=== PATIENT | female | born 1980 | race Caucasian/White ===

== ENCOUNTER 2017-12-06 18:43 | Emergency (ER) | payer OTHER ==
[2017-12-06 19:16] LABS: Urine Blood TRACE (NEG); Urine Glucose NEGATIVE (NEG); Urine Protein TRACE (NEG); Urine pH 7.5 (5.0-7.0)
[2017-12-06 19:24] LABS: Urine Bacteria <20 /HPF (<20); Urine Culture Reflex Order NOT NEEDED; Urine Mucus NS /HPF (NONE SEEN)
[2017-12-06] MEDS ORDERED: NA CHLORIDE 0.9% 1,000 ML ONE (20:08)
[2017-12-06] MEDS ORDERED: KETOROLAC 30 MG/ML INJ ONE (20:08)
[2017-12-06 20:32] LABS: Absolute Lymphocytes (CBC) 1.5 K/uL (0.7-4.9); Absolute Neutrophil 2.9 K/uL (1.8-8.0); Eosinophils % 0.4 % (0-4.4); Hematocrit 37.8 % (36.0-45.0); Lymphocytes % 26.5 % (15.3-44.8); MCH 24.6 pg (27.0-35.0); MCV 75.1 fL (80-100); MPV 9.1 fL (7.6-11.3); Monocytes % 18.6 % (3.3-12.3); RBC Red Blood Cell Count 5.04 M/uL (3.86-4.86)
[2017-12-06 20:35] LABS: Bicarbonate 24 mEq/L (21-31); Glucose Level 94 mg/dL (65-120); Potassium 4.1 mEq/L (3.6-5.0); Sodium Level 138 mEq/L (135-145)
[2017-12-06 20:36] LABS: BUN Blood Urea Nitrogen 13 mg/dL (6-20)
--- NOTE | 2017-12-06 20:51 | RAD REPORT ---
EXAM DESCRIPTION: CT - Stone Protocol - 12/06/2017 8:36 pm CLINICAL HISTORY: Flank pain. Hematuria COMPARISON: 08/17/2017 TECHNIQUE: Axial images were obtained without oral or IV contrast. Lack of contrast limits solid org an and vascular assessment. The [id number] spans the entirety of the system partially obscuring uppermost abdomen and lung bases. Coronal reformatted images were obtained and reviewed. All CT scans are performed using dose optimization technique as appropriate and may include automated exposure control or mA/KV adjustment according to patient size. FINDINGS: The lower lung de jesus are clear. Imaged portions of the liver and spleen show no suspicious findings on non-contrast imaging. The panc reas and adrenal glands are normal. No pathologic lymphadenopathy in the abdomen or pelvis. No urinary tract stones or obstructive uropathy. No bowel obstruction, free air, free fluid or abscess. Normal appendix noted. No significant bony abnormality. IMPRESSION: No urinary tract stones or obstructive uropathy.
[2017-12-06 20:54] LABS: Anisocytosis 2+; Blood Morphology Comment NOTED (NOT SEEN); Platelet Estimate ADEQ
--- NOTE | 2017-12-06 21:18 | ER ---
Nurse's Notes [facility] Name: Carli Hadley Age: 36 yrs Sex: Female : 1980 Arrival Date: 12/06/2017 Time: 18:45 Bed 24 Private MD: Lambert Stark Diagnosis: Hematuria, unspecified Presentation: 12/06 18:47 Presenting complaint: Patient states: Burning with urination and blood in urine since la1 yesterday. Transition of care: patient was not received from another setting of care. Onset of symptoms was December 06, 2017. Initial Sepsis Screen: Does the patient meet any 2 criteria? No. Patient's initial sepsis screen is negative. Does the patient have a suspected source of infection? No. Patient's initial sepsis screen is negative. Care prior to arrival: None. 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 - Social history:: Smoking status: Patient uses tobacco products, smokes one pack cigarettes per day. Screenin:15 Fall Risk None identified. kr2 20:51 Abuse screen: Denies threats or abuse. Denies injuries from another. Nutritional kr2 screening: No deficits noted. Tuberculosis screening: No symptoms or risk factors identified. Assessment: 19:30 General: Appears in no apparent distress. uncomfortable, well groomed, well developed, kr2 well nourished, Behavior is calm, cooperative, appropriate for age. Pain: Complains of pain in back, pelvis, legs Pain currently is 7 out of 10 on a pain scale. Quality of pain is described as aching, sharp, Is continuous, Alleviated by rest. Neuro: Level of Consciousness is awake, alert, obeys commands, Oriented to person, place, time, situation. Cardiovascular: Capillary refill < 3 seconds in bilateral fingers Patient's skin is warm and dry. Respiratory: Airway is patent Respiratory effort is even, unlabored, Respiratory pattern is regular, symmetrical. GI: Abdomen is flat, non-distended, Bowel sounds present X 4 quads. : Reports burning with urination. EENT: Oral mucosa is moist. Derm: Skin is intact, is healthy with good turgor, Skin is pink, warm \T\ dry. Musculoskeletal: Circulation, motion, and sensation intact. 20:30 Reassessment: Patient appears in no apparent distress at this time. Patient and/or kr2 family updated on plan of care and expected duration. Pain level reassessed. Patient is alert, oriented x 3, equal unlabored respirations, skin warm/dry/pink. Medicated for pain as ordered, pain has decreased. 21:30 Reassessment: Patient appears in no apparent distress at this time. Patient and/or kr2 family updated on plan of care and expected duration. Pain level reassessed. Patient is alert, oriented x 3, equal unlabored respirations, skin warm/dry/pink. Reports pain is returning, provider notified, see MAR. Vital Signs: 18:48 BP 148 / 110; Pulse 103; Resp 19; Temp 99.7(TE); Pulse Ox 100% on R/A; Weight 61.23 kg; la1 Height 5 ft. 2 in. (157.48 cm); 20:45 BP 137 / 92; Pulse 102; Resp 18; Pulse Ox 99% on R/A; kr2 21:30 BP 133 / 88; Pulse 94; Resp 16; Pulse Ox 100% on R/A; kr2 18:48 Body Mass Index 24.69 (61.23 kg, 157.48 cm) la1 ED Course: 18:45 Patient arrived in ED. as 18:45 Lambret Stark MD is Private Physician. as 18:48 Triage completed. la1 18:49 Arm band placed on left wrist. la1 18:52 [facility]C [facility]. kb 18:52 Alexei Pickering MD is Attending Physician. kb 19:15 Patient has correct armband on for positive identification. Bed in low position. Call kr2 light in reach. Side rails up X 1. Pulse ox on. NIBP on. Door closed. Lights dimmed. Warm blanket given. Head of bed elevated. 19:17 Isabel Martinez RN is Primary Nurse. kr2 20:15 Inserted saline lock: 20 gauge in right antecubital area, using aseptic technique. kr2 Blood collected. 20:28 CT completed. Patient moved to CT via wheelchair. Patient moved back from CT. cw1 20:36 CT Stone Protocol In Process Unspecified. EDMS 22:02 No provider procedures requiring assistance completed. IV discontinued, intact, kr2 bleeding controlled, No redness/swelling at site. Pressure dressing applied. Administered Medications: 20:03 CANCELLED (Physician Discretion): TORadol 60 mg IM once kb 20:19 Drug: NS 0.9% 1000 ml Route: IV; Rate: 1000 ml; Site: right antecubital; kr2 21:30 Follow up: Response: No adverse reaction; IV Status: Completed infusion kr2 20:19 Drug: TORadol 30 mg Route: IVP; Site: right antecubital; kr2 20:30 Follow up: Response: No adverse reaction; Pain is decreased kr2 21:42 Drug: [place] (7.5 mg-325 mg) 1 tabs Route: PO; kr2 21:59 Follow up: Response: Medication administered at discharge. kr2 Outcome: 21:18 Discharge ordered by . kb 22:02 Discharged to home ambulatory, with friend. kr2 22:02 Condition: good 22:02 Discharge instructions given to patient, Instructed on discharge instructions, follow up and referral plans. Demonstrated understanding of instructions, follow-up care. 22:03 Patient left the ED. kr2 Signatures: Dispatcher [employer] EDWI Magali Elmore, GENNARO HILL-Kassi Glaser Crystal cw1 Bridger Jama RN RN laIsabel Conrad RN RN kr2
--- NOTE | 2017-12-06 21:18 | EDPHYS ---
Physician Documentation [facility] Name: Carli Hadley Age: 36 yrs Sex: Female : 1980 Arrival Date: 12/06/2017 Time: 18:45 Bed 24 Private MD: Lambert Stark ED Physician Alexei Pickering HPI: 12/06 21:54 This 36 yrs old Female presents to ER via Ambulatory with complaints of kb Urinary Problem. 21:54 The patient presents with urinary symptoms, dysuria, hematuria. Onset: The kb symptoms/episode began/occurred yesterday. Modifying factors: The symptoms are alleviated by nothing, the symptoms are aggravated by urinating. Associated signs and symptoms: Pertinent positives: dysuria, hematuria. Severity of symptoms: At their worst the symptoms were moderate, in the emergency department the symptoms are unchanged. The patient has not experienced similar symptoms in the past. The patient has not recently seen a physician. Pt states she has had multiple UTIs and thinks she another one. . 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 - Social history:: Smoking status: Patient uses tobacco products, smokes one pack cigarettes per day. ROS: 21:53 Constitutional: Negative for fever, chills, and weight loss, Cardiovascular: Negative kb for chest pain, palpitations, and edema, Respiratory: Negative for shortness of breath, cough, wheezing, and pleuritic chest pain, Abdomen/GI: Negative for abdominal pain, nausea, vomiting, diarrhea, and constipation, MS/Extremity: Negative for injury and deformity, Skin: Negative for injury, rash, and discoloration, Neuro: Negative for headache, weakness, numbness, tingling, and seizure. 21:53 : Positive for urinary symptoms, hematuria, burning with urination. Exam: 21:53 Constitutional: This is a well developed, well nourished patient who is awake, alert, kb and in no acute distress. Head/Face: Normocephalic, atraumatic. Chest/axilla: Normal chest wall appearance and motion. Nontender with no deformity. No lesions are appreciated. Cardiovascular: Regular rate and rhythm with a normal S1 and S2. No gallops, murmurs, or rubs. Normal PMI, no JVD. No pulse deficits. Respiratory: Lungs have equal breath sounds bilaterally, clear to auscultation and percussion. No rales, rhonchi or wheezes noted. No increased work of breathing, no retractions or nasal flaring. Abdomen/GI: Soft, non-tender, with normal bowel sounds. No distension or tympany. No guarding or rebound. No evidence of tenderness throughout. Back: No spinal tenderness. No costovertebral tenderness. Full range of motion. Skin: Warm, dry with normal turgor. Normal color with no rashes, no lesions, and no evidence of cellulitis. MS/ Extremity: Pulses equal, no cyanosis. Neurovascular intact. Full, normal range of motion. Neuro: Awake and alert, GCS 15, oriented to person, place, time, and situation. Cranial nerves II-XII grossly intact. Motor strength 5/5 in all extremities. Sensory grossly intact. Cerebellar exam normal. Normal gait. Vital Signs: 18:48 BP 148 / 110; Pulse 103; Resp 19; Temp 99.7(TE); Pulse Ox 100% on R/A; Weight 61.23 kg; la1 Height 5 ft. 2 in. (157.48 cm); 20:45 BP 137 / 92; Pulse 102; Resp 18; Pulse Ox 99% on R/A; kr2 21:30 BP 133 / 88; Pulse 94; Resp 16; Pulse Ox 100% on R/A; kr2 18:48 Body Mass Index 24.69 (61.23 kg, 157.48 cm) la1 MDM: 19:13 Patient medically screened. frederic 21:53 Data reviewed: vital signs, nurses notes. Data interpreted: Pulse oximetry: on room air kb is 99 %. Interpretation: normal. Counseling: I had a detailed discussion with the patient and/or guardian regarding: the historical points, exam findings, and any diagnostic results supporting the discharge/admit diagnosis, lab results, radiology results, the need for outpatient follow up, a family practitioner, a urologist, to return to the emergency department if symptoms worsen or persist or if there are any questions or concerns that arise at home. 12/06 18:52 Order name: Urine Microscopic Only; Complete Time: 19:25 kb 12/06 19:08 Order name: Urine Dipstick--Ancillary (enter results); Complete Time: 19:20 em1 12/06 19:08 Order name: Urine --Ancillary (enter results); Complete Time: 19:20 em1 12/06 20:04 Order name: CBC with Diff; Complete Time: 20:55 kb 12/06 20:04 Order name: Basic Metabolic Panel; Complete Time: 20:40 kb 12/06 20:54 Order name: Manual Differential; Complete Time: 20:55 EDMS 12/06 18:52 Order name: Urine Test (obtain specimen); Complete Time: 19:07 kb 12/06 18:52 Order name: Urine Dipstick-Ancillary (obtain specimen); Complete Time: 19:07 kb 12/06 20:03 Order name: CT Stone Protocol; Complete Time: 20:54 kb Administered Medications: 20:03 CANCELLED (Physician Discretion): TORadol 60 mg IM once kb 20:19 Drug: NS 0.9% 1000 ml Route: IV; Rate: 1000 ml; Site: right antecubital; kr2 21:30 Follow up: Response: No adverse reaction; IV Status: Completed infusion kr2 20:19 Drug: TORadol 30 mg Route: IVP; Site: right antecubital; kr2 20:30 Follow up: Response: No adverse reaction; Pain is decreased kr2 21:42 Drug: [place] (7.5 mg-325 mg) 1 tabs Route: PO; kr2 21:59 Follow up: Response: Medication administered at discharge. kr2 Disposition: 12/07 08:56 Co-signature as Attending Physician, Aelxei Pickering MD I agree with the assessment and frederic plan of care. Disposition: 12/06/17 21:18 Discharged to Home. Impression: Hematuria, unspecified. - Condition is Stable. - Discharge Instructions: Hematuria, Adult. - Medication Reconciliation Form, Thank You Letter, Antibiotic Education, Prescription Opioid Use form. - Follow up: Emergency Department; When: As needed; Reason: Worsening of condition. Follow up: Private Physician; When: 2 - 3 days; Reason: Recheck today's complaints, Continuance of care, Re-evaluation by your physician. Signatures: Dispatcher [employer] Magali Calvo, SAMEERAC CERTIFIED LOW VISION THERAPIST-Alexei Conway MD MD cha Attema, Lee, RN RN [email or web address] Isabel Martinez RN RN kr2 Corrections: (The following items were deleted from the chart) 12/06 20:03 20:03 TORadol 60 mg IM once ordered. kb kb 21:53 21:53 : Positive for urinary symptoms, urinary frequency, hematuria, burning with kb urination, kb
[2017-12-06] MEDS ORDERED: HYDROCODONE/APAP 7.5/325 MG TAB ONE (21:38)
== END 2017-12-06 22:03 | disposition home or self-care (01) ==
LOC: ER 18:43
DX: R31.9 Hematuria, unspecified (principal); I10 Essential (primary) hypertension; F17.210 Nicotine dependence, cigarettes, uncomplicated; Z88.1 Allergy status to other antibiotic agents; Z88.8 Allergy status to other drugs, medicaments and biological substances
CPT/HCPCS: 36415; 74176; 76377; 80048; 81025; 85025; J7030; 81003; 81015; 96361; 96374; 99284

== ENCOUNTER 2017-12-07 03:42 | Emergency (ER) | payer OTHER ==
[2017-12-07 04:15] LABS: Urine Blood 2+ (NEG); Urine Glucose NEGATIVE (NEG); Urine Protein 2+ (NEG); Urine Specific Gravity >1.030 (1.005-1.030); Urine pH 6.5 (5.0-7.0)
--- NOTE | 2017-12-07 04:21 | ER ---
Nurse's Notes [facility] Name: Carli Hadley Age: 36 yrs Sex: Female : 1980 Arrival Date: 12/07/2017 Time: 03:43 Bed 20 Private MD: Lambert Stark Diagnosis: Sleep related leg cramps Presentation: 12/07 03:54 Presenting complaint: Patient states: "I'm having blood in my urine. My leg hurts, my ao back hurts. I have a history of UTI's in the past with similar symptoms.". Transition of care: patient was not received from another setting of care. Onset of symptoms is unknown. Initial Sepsis Screen: Does the patient meet any 2 criteria? No. Patient's initial sepsis screen is negative. Does the patient have a suspected source of infection? Yes: Dysuria/Frequency/Urgency/UTI. Care prior to arrival: None. 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 - Social history:: Smoking status: Patient uses tobacco products, denies chronic smoking, but will smoke occasionally, smokes one-half pack cigarettes per day, Patient/guardian denies using alcohol, street drugs. Screenin:02 Abuse screen: Denies threats or abuse. Denies injuries from another. Nutritional ao screening: No deficits noted. Tuberculosis screening: No symptoms or risk factors identified. Fall Risk None identified. Assessment: 04:01 General: Appears in no apparent distress. uncomfortable, Behavior is calm, cooperative, ao appropriate for age. Pain: Complains of pain in back, right leg and left leg Pain does not radiate. Pain currently is 8 out of 10 on a pain scale. Neuro: Level of Consciousness is awake, alert, obeys commands, Oriented to person, place, time, situation, Appropriate for age Moves all extremities. Speech is normal. Cardiovascular: Capillary refill < 3 seconds Patient's skin is warm and dry. Respiratory: Airway is patent Respiratory effort is even, unlabored, Respiratory pattern is regular, symmetrical. GI: Abdomen is non-distended. : Reports pain in lower back Pain is 8 out of 10 on a pain scale. : Reports urinary frequency. EENT: Derm: No signs and/or symptoms reported regarding the dermatologic system. Musculoskeletal: No signs and/or symptoms reported regarding the musculoskeletal system. 04:17 Reassessment: Patient has been sleeping with no ss of pain. Dr De Anda at bedside trying ao to wake patient up and patient was in a deep sleep. Dr De Anda expressed to me that patient is not so much in pain. 04:33 Reassessment: DC instructions given to patient. Patient requested a pain shot and was ao told that DrRosemarie feel that she is not so much in pain so he would not be able to give her a pain shot. Patient got mad and told me "I'm not taking no Ibuprofen. You can keep that" Patient got up and left the room without taking her DC documents. was notified. Vital Signs: 03:59 BP 120 / 72; Pulse 115; Resp 16; Temp 98.7(O); Pulse Ox 97% on R/A; Weight 61.23 kg ao (R); Height 5 ft. 2 in. (157.48 cm) (R); Pain 8/10; 03:59 Body Mass Index 24.69 (61.23 kg, 157.48 cm) ao ED Course: 03:43 Patient arrived in ED. es 03:46 Lambert Stark MD is Private Physician. es 03:54 Armando Sterling, KATHARINE is Primary Nurse. ao 03:57 Triage completed. ao 03:57 Arm band placed on right wrist. Patient placed in an exam room, on a stretcher, on ao pulse oximetry, Patient notified of wait time. 04:02 Patient has correct armband on for positive identification. Pulse ox on. NIBP on. ao 04:07 Fausto De Anda MD is Attending Physician. tw4 04:20 Lambert Stark MD is Referral Physician. tw4 04:31 No provider procedures requiring assistance completed. Patient did not have IV access ao during this emergency room visit. Administered Medications: No medications were administered Outcome: 04:20 Discharge ordered by . tw4 04:32 Discharged to home ambulatory. ao 04:32 Condition: stable 04:32 Discharge instructions given to patient, Instructed on discharge instructions, follow up and referral plans. Demonstrated understanding of instructions, follow-up care, medications, Prescriptions given X 1, Patient left without DC papers 04:36 Patient left the ED. ao Signatures: Veronica Rossi Alex RN RN Fausto Pedroza MD MD tw4 Corrections: (The following items were deleted from the chart) 04:36 04:17 Reassessment: Patient has been sleeping with no ss of pain. Dr De Anda at bedside ao trying to wake patient up and patient was in a deep sleep. ao
--- NOTE | 2017-12-07 04:21 | EDPHYS ---
Physician Documentation [facility] Name: Carli Hadley Age: 36 yrs Sex: Female : 1980 Arrival Date: 12/07/2017 Time: 03:43 Bed 20 Private MD: Lambert Stark ED Physician Fausto De Anda HPI: 12/07 04:32 This 36 yrs old Female presents to ER via Ambulatory with complaints of tw4 States she is in sever pain. 04:32 The patient presents with urinary symptoms, dysuria, hematuria. Onset: The tw4 symptoms/episode began/occurred just prior to arrival. Modifying factors: The symptoms are alleviated by nothing, the symptoms are aggravated by nothing. Severity of symptoms: At their worst the symptoms were mild, in the emergency department the symptoms are unchanged. The patient has experienced a previous episode, yesterday. The patient has been recently seen by a physician: The patient has been recently seen at the [facility] Emergency Department. 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 - Social history:: Smoking status: Patient uses tobacco products, denies chronic smoking, but will smoke occasionally, smokes one-half pack cigarettes per day, Patient/guardian denies using alcohol, street drugs. ROS: 04:34 Positive for urinary symptoms, hematuria. tw4 04:34 Cardiovascular: Negative for chest pain, palpitations, and edema, Respiratory: Negative for shortness of breath, cough, wheezing, and pleuritic chest pain, Abdomen/GI: Negative for abdominal pain, nausea, vomiting, diarrhea, and constipation. 04:34 MS/extremity: Positive for pain, tenderness, of the right leg and left leg. Exam: 04:34 Head/Face: Normocephalic, atraumatic. tw4 04:34 Chest/axilla: Normal chest wall appearance and motion. Nontender with no deformity. No lesions are appreciated. Cardiovascular: Regular rate and rhythm with a normal S1 and S2. No gallops, murmurs, or rubs. Normal PMI, no JVD. No pulse deficits. Respiratory: Lungs have equal breath sounds bilaterally, clear to auscultation and percussion. No rales, rhonchi or wheezes noted. No increased work of breathing, no retractions or nasal flaring. Abdomen/GI: Soft, non-tender, with normal bowel sounds. No distension or tympany. No guarding or rebound. No evidence of tenderness throughout. 04:34 Constitutional: The patient appears somnolent 04:34 Neuro: Orientation: is normal, Mentation: is normal, somnolent, Memory: is normal, tw4 Motor: moves all fours. Vital Signs: 03:59 BP 120 / 72; Pulse 115; Resp 16; Temp 98.7(O); Pulse Ox 97% on R/A; Weight 61.23 kg ao (R); Height 5 ft. 2 in. (157.48 cm) (R); Pain 8/10; 03:59 Body Mass Index 24.69 (61.23 kg, 157.48 cm) ao MDM: 04:07 Patient medically screened. tw4 04:34 Data reviewed: vital signs, nurses notes. Counseling: I had a detailed discussion with tw4 the patient and/or guardian regarding: the historical points, exam findings, and any diagnostic results supporting the discharge/admit diagnosis. Special discussion: I discussed with the patient/guardian in detail that at this point there is no indication for admission to the hospital. It is understood, however, that if the symptoms persist or worsen the patient needs to return immediately for re-evaluation. ED course: Pt was extremely difficult to arouse. Pt eventually awoke and stated she was in severe pain. Upon exam pt had no pain on exam of lower extremities. Pt received [place] and Toradol on previous visit. 12/07 04:08 Order name: Urine Dipstick--Ancillary (enter results) em1 Administered Medications: No medications were administered Disposition: 12/07/17 04:20 Discharged to Home. Impression: Sleep related leg cramps. - Condition is Stable. - Discharge Instructions: Leg Cramps. - Prescriptions for Ibuprofen 800 mg Oral Tablet - take 1 tablet by ORAL route every 8 hours As needed take with food; 30 tablet. - Medication Reconciliation Form, Thank You Letter, Antibiotic Education, Prescription Opioid Use form. - Follow up: Lambert Stark MD; When: As needed; Reason: Recheck today's complaints, Re-evaluation by your physician. - Problem is an ongoing problem. - Symptoms are unchanged. Signatures: Dispatcher [employer] Armando Rob RN RN Fausto Pedroza MD MD tw4
== END 2017-12-07 04:36 | disposition home or self-care (01) ==
LOC: ER 03:42
DX: G47.62 Sleep related leg cramps (principal); Z88.6 Allergy status to analgesic agent
CPT/HCPCS: 81003; 99283

== ENCOUNTER 2018-10-27 10:58 | Day surgery (SDC) | payer BC, OTHER ==
--- OUTSIDE RECORDS SUMMARY | 2018-10-26 14:24 | XMS REPORT | Clinical Summary ---
:1980 Author Organization [facility] Address [address] [place] [address] Care Team Providers Name Role Phone Shabnam Joy MD Primary Care Provider Allergies Active Allergy Reactions Severity Noted Date Comments Prochlorperazine Hives 09/24/2018 Elevated HR Gabapentin 09/24/2018 Stiff joints Cyproheptadine 09/24/2018 Stiff joints Promethazine Hives 09/24/2018 Elevated HR Carbamazepine 09/24/2018 Stiff joints Medications Medication Sig Dispensed Refills Start Date End Date Status HYDROcodone-aceta Take 1 tablet by 0 09/10/2018 Active minophen (NORCO) mouth 2 (two) 7.5-325 mg per times a day. tablet carvedilol Take 25 mg by 0 09/02/2018 Active (COREG) 25 MG mouth 2 (two) tablet times a day. tiZANidine Take 4 mg by 0 08/30/2018 Active (ZANAFLEX) 4 MG mouth 2 (two) tablet times a day. sodium chloride by intrathecal 0 Active 0.9% parenteral route solution continuously. doxycycline Take 100 mg by 2 09/21/2018 Discontinued (ADOXA) 100 MG mouth 2 (two) 9 tablet times a day. Active Problems Problem Noted Date Smoker 10/26/2018 Essential hypertension 08/17/1999 Overview: On coreg Chronic pain Overview: chronic back pain s/p surgeries x 4 and now with morphine pump and norco managed by pain specialist Encounters Date Type Specialty Care Team Description 10/26/2018 Office Visit Internal Medicine Shabnam Joy Chronic fatigue ( Primary Dx); MD Víctor Weight loss; Fever, unspecified fever cause 10/26/2018 Orders Only Internal Medicine Shabnam Jyo Other fatigue; MD Víctor Mouth sores 09/24/2018 Office Visit Internal Medicine Shabnam Joy Fever and chills ( Primary Dx); MD Víctor Other fatigue; Mouth sores; Cigarette smoker; Other chronic back pain; Essential hypertension after 10/25/2017 Family History Medical History Relation Name Comments Diabetes Brother Jed Reeder Arthritis Father Tommy Strange Cancer Maternal Grandfather Rigoberto Mak Breast Cancer Maternal Grandmother Sisi Kelton Breast Arthritis Mother Megan Strange Heart disease Mother Megan Strange Stroke Mother Megan Strange Cancer Paternal Grandfather N/A Lung Cancer Paternal Grandmother Evy Strange Cancer Sister Wendy Vasqueznge Relation Name Status Comments Brother Jed Reeder Father Tommy Strange Alive Maternal Grandfather Rigoberto Obdulio Maternal Grandmother Sisi Kelton Mother Megan Strange Alive Paternal Grandfather N/A Paternal Grandmother Evy Strange Sister Wendy Vasqueznge Social History Tobacco Use Types Packs/Day Years Used Date Current Every Day Smoker Cigarettes 1 15 Smokeless Tobacco: Never Used Alcohol Use Drinks/Week oz/Week Comments No Sex Assigned at Date Recorded Not on file Job Start Date Occupation Industry Not on file Not on file Not on file Travel History Travel Start Travel End No recent travel history available. Last Filed Vital Signs Vital Sign Reading Time Taken Blood Pressure 127/81 10/26/2018 11:04 AM CDT Pulse 78 10/26/2018 11:04 AM CDT Temperature 36.8 C (98.3 F) 10/26/2018 11:04 AM CDT Respiratory Rate 16 10/26/2018 11:04 AM CDT Oxygen Saturation 97% 10/26/2018 11:04 AM CDT Inhaled Oxygen Concentration - - Weight 56.2 kg (124 lb) 10/26/2018 11:04 AM CDT Height 157.5 cm (5' 2") 10/26/2018 11:04 AM CDT Body Mass Index 22.68 10/26/2018 11:04 AM CDT Plan of Treatment Health Maintenance Due Date Last Done Comments CERVICAL CANCER SCREENING 12/24/2003 INFLUENZA VACCINE 03/17/2018 Results Not on fileafter 10/25/2017 Insurance Payer Benefit Plan / Group Subscriber ID Type Phone Address MEDICARE MEDICARE PART A AND B xxxxxxxxxxx Medicare [place], [place] BCBS BCBS CHOICE PPO/FEDERAL EMPL PPO xxxxxxxxxxxx PPO Advance Directives Patient has advance care planning documents on file. For more information, please contact:Frank [id number] [place] [address]
--- NOTE | 2018-10-26 15:25 | RAD REPORT ---
EXAM DESCRIPTION: RAD - Chest Pa And Lat (2 Views) - 10/26/2018 3:01 pm CLINICAL HISTORY: Preop chest, pending cystoscopy COMPARISON: August 2017 TECHNIQUE: PA and lateral views of the chest were obtained. FINDINGS: The lungs are clear. Lung markings are similar to comparison. Heart size is normal and ce ntral vasculature is within normal limits. No pleural effusion or pneumothorax seen. No acute bone finding. Scoliotic curvature is present in the upper thoracic spine. Pain pump tubing is seen in the central canal. No aortic abnormality. IMPRESSION: No acute cardiopulmonary process. No significant change from comparison.
[2018-10-26 16:27] LABS: Urine Appearance CLEAR; Urine Bilirubin NEGATIVE (NEG); Urine Blood NEGATIVE (NEG); Urine Color YELLOW; Urine Glucose NEGATIVE (NEG); Urine Protein NEGATIVE (NEG); Urine pH 6.5 (5.0-7.0)
[2018-10-26 16:29] LABS: Absolute Lymphocytes (CBC) 1.6 K/uL (0.7-4.9); Absolute Monocytes 0.8 K/uL (0.1-1.3); Absolute Neutrophil 4.2 K/uL (1.8-8.0); Basophils % 0.8 % (0-1.3); Hematocrit 48.1 % (36.0-45.0); Lymphocytes % 23.5 % (15.3-44.8); Monocytes % 12.5 % (3.3-12.3); RBC Red Blood Cell Count 5.78 M/uL (3.86-4.86); Urine Microscopic Reflex NO UMIC
[2018-10-26 16:31] LABS: Protime INR 1.01
[2018-10-26 16:42] LABS: BUN Blood Urea Nitrogen 10 mg/dL (7-18); Bicarbonate 33 mmol/L (21-32); Glucose Level 93 mg/dL (74-106); Potassium 4.3 mmol/L (3.5-5.1); Sodium Level 141 mmol/L (136-145)
--- OUTSIDE RECORDS SUMMARY | 2018-10-27 11:01 | XMS REPORT | Clinical Summary ---
:1980 [facility] [address] [place] [address] Care Team Providers Name Role Phone Shabnam [...] cause 10/26/2018 Orders Only Internal Medicine Shabnam Joy Other fatigue; MD Víctor Mouth sores 09/24/2018 Office Visit Internal Medicine Shabnam Joy Fever and chills ( Primary Dx); MD Víctor Other fatigue; Mouth sores; Cigarette smoker; Other chronic back pain; Essential hypertension after 10/26/2017 Family History Medical History Relation Name Comments [...] INFLUENZA VACCINE 03/17/2018 Results Not on fileafter 10/26/2017 Insurance Payer Benefit Plan / Group Subscriber ID Type Phone Address MEDICARE MEDICARE PART A AND B xxxxxxxxxxx Medicare [place], [place] BCBS BCBS CHOICE PPO/FEDERAL EMPL PPO xxxxxxxxxxxx PPO Advance Directives Patient has advance care planning documents on file. For more information, please contact:Frank [id number] [place] [address]
[2018-10-27] MEDS ORDERED: GENTAMICIN 80 MG/100 ML BAG 80 MG/100 ML BAG IV ONE (11:20)
[2018-10-27] MEDS ORDERED: Ringers Lactate 1,000 ML IV ONE (11:20)
[2018-10-27] MEDS ORDERED: MIDAZOLAM HCL 2 MG/2 ML INJ ONE ×2 (12:25→13:03)
[2018-10-27] MEDS ORDERED: FENTANYL CITR 100 MCG/2 ML ONE (12:25)
[2018-10-27] MEDS ORDERED: PROPOFOL 200 MG/20 ML VIAL IV ONE (12:25)
[2018-10-27] MEDS ORDERED: LIDOCAINE 2% MPF 5 ML VIAL ONE (12:26)
[2018-10-27] MEDS ORDERED: ONDANSETRON 4 MG/2 ML VIAL ONE (12:26)
[2018-10-27] MEDS ORDERED: EPHEDRINE SULF 50 MG/ML VIAL ONE (13:13)
[2018-10-27] MEDS: MORPHINE 4 MG/ML SYR ONE ×8 (13:30→14:05)
[2018-10-27] MEDS ORDERED: HYDROCODONE/APAP 5/325 MG TAB ONE (14:47)
[2018-10-27] MEDS ORDERED: PHENAZOPYRIDINE 100MG TAB PO ONE (14:48)
--- NOTE | 2018-10-28 10:31 | EKG ---
Test Date: 2018-10-26 Test Time: 13:50:53 Mail Processing Associate: PHIL MEASUREMENT RESULTS: Intervals: Rate: 71 MD: 124 QRSD: 80 QT: 376 QTc: 408 Saxton: P: 49 MD: 124 QRS: 2 T: 58 INTERPRETIVE STATEMENTS: Normal sinus rhythm Normal ECG No previous ECG available for comparison Electronically Signed On 10-27-18 08:12:08 CDT by Sterling Person
== END 2018-10-27 15:02 | disposition home or self-care (01) ==
LOC: OR 10:58
PROVIDERS: ATTEND Urology
PROC: 0T7D8ZZ Dilation of Urethra, Via Natural or Artificial Opening Endoscopic (ICD-10-PCS; 2018-10-27)
PROC: 3E0K8GC Introduction of Other Therapeutic Substance into Genitourinary Tract, Via Natural or Artificial Opening Endoscopic (ICD-10-PCS; principal; 2018-10-27 12:00)
DX: N35.92 Unspecified urethral stricture, female (principal); N39.0 Urinary tract infection, site not specified; I10 Essential (primary) hypertension; F17.210 Nicotine dependence, cigarettes, uncomplicated; Z79.899 Other long term (current) drug therapy
CPT/HCPCS: 36415; 71046; 80048; 81003; 81025; 85025; 85610; 85730; 87086; 87088; 93005; J1580; J2250; J2405; J2704; J3010

== ENCOUNTER 2019-04-19 20:47 | Emergency (ER) | payer BC, OTHER ==
--- OUTSIDE RECORDS SUMMARY | 2019-04-19 20:50 | XMS REPORT | Clinical Summary ---
:1980 Author Organization [facility] Address [address] [place] [address] Care Team Providers Name Role Phone Shabnam [...] fever cause 10/26/2018 Orders Only Internal Medicine Rufino, Shabnam Other fatigue; MD Víctor Mouth sores 09/24/2018 Office Visit Internal Medicine Shabnam Joy Fever and chills ( Primary Dx); MD Víctor Other fatigue; Mouth sores; Cigarette smoker; Other chronic back pain; Essential hypertension after 04/18/2018 Family History Medical History Relation Name Comments Diabetes Brother Jed Reeder Arthritis Father Tommy Strange Cancer Maternal Grandfather Rigoberto Mak Breast Cancer Maternal Grandmother Sisi Kelton Breast Arthritis Mother Megan Strange Heart disease Mother Megan Strange Stroke Mother Megan Strange Cancer Paternal Grandfather N/A Lung Cancer Paternal Grandmother Evy Strange Cancer Sister Wendy Vasquezngjett Relation Name Status Comments Brother Jed Reeder Father Tommy Strange Alive Maternal Grandfather Rigoberto Mak Maternal Grandmother Sisi Kelton Mother Megan Vasqueznge Alive Paternal Grandfather N/A Paternal Grandmother Evy [...] Vital Signs Vital Sign Reading Time Taken Comments Blood Pressure 127/81 10/26/2018 11:04 AM CDT [...] Comments CERVICAL CANCER SCREENING 12/24/2003 INFLUENZA VACCINE 03/17/2019 Results Not on fileafter 04/18/2018 Insurance Payer Benefit Plan / Subscriber ID Effective Dates Phone Address Type Group BCBS BCBS CHOICE xxxxxxxxxxxx 2017-Present PPO PPO/FEDERAL EMPL PPO MEDICARE MEDICARE PART A xxxxxxxxxxx 2012-Present [place], [place] Medicare AND B Advance Directives For more information, please contact: [phone] Type Date Recorded Patient Office Asst Explanation Advance Directives, Living Will and Medical Power of [employer]
[2019-04-19] MEDS ORDERED: NA CHLORIDE 0.9% 1,000 ML ONE ×2 (21:48→22:46)
[2019-04-19 22:05] LABS: Absolute Lymphocytes (CBC) 1.4 K/uL (0.7-4.9); Basophils % 0.4 % (0-1.3); Hematocrit 47.7 % (36.0-45.0); Lymphocytes % 13.1 % (15.3-44.8); MPV 8.1 fL (7.6-11.3); RBC Red Blood Cell Count 5.02 M/uL (3.86-4.86)
[2019-04-19 22:23] LABS: ALT/SGPT 26 U/L (12-78); AST/SGOT 13 U/L (15-37); Albumin 4.1 g/dL (3.4-5.0); Alkaline Phosphatase 43 U/L (45-117); BUN Blood Urea Nitrogen 12 mg/dL (7-18); Bicarbonate 25 mmol/L (21-32); Bilirubin Direct 0.1 mg/dL (0-0.2); Bilirubin Total 0.5 mg/dL (0.2-1.0); Glucose Level 103 mg/dL (74-106); Lipase 190 U/L (73-393); Potassium 3.5 mmol/L (3.5-5.1); Protein, Total 7.5 g/dL (6.4-8.2); Sodium Level 144 mmol/L (136-145)
[2019-04-19] MEDS ORDERED: IBUPROFEN 400 MG TAB ONE (22:57)
--- NOTE | 2019-04-19 22:59 | EDPHYS ---
Physician Documentation [facility] Name: Carli Hadley Age: 38 yrs Sex: Female : 1980 Arrival Date: 04/19/2019 Time: 20:50 Bed 13 Private MD: ED Physician Fausto De Anda HPI: 04/19 21:10 This 38 yrs old Female presents to ER via Ambulatory with complaints of jmm BODYACHE, CHILLS,FEVER. 21:10 The patient reports fever, not measured (subjective). Onset: The symptoms/episode jmm began/occurred chronic. Modifying factors: there are no obvious modifying factors. Associated signs and symptoms: Pertinent negatives: abdominal pain, cough, sinus congestion, sore throat. This si a 38 year old female with a history of htn, MS that presents to the ED with complains of body aches. Patient states symptoms have been ongoing for approx 2 years and is under the care of MD mccartney. Patient recently had a bone marrow biopsy but has yet to get results. Patient denies cough, denies sore throat, denies abdominal pain. Patient states having decreased appetite over the past 2 days. . 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 - Social history:: Smoking status: Patient uses tobacco products, smokes one pack cigarettes per day. - Ebola Screening: : No symptoms or risks identified at this time. ROS: 21:10 Cardiovascular: Negative for chest pain, palpitations, and edema, Respiratory: Negative jmm for shortness of breath, cough, wheezing, and pleuritic chest pain, Abdomen/GI: Negative for abdominal pain, nausea, vomiting, diarrhea, and constipation, Neuro: Negative for headache, weakness, numbness, tingling, and seizure. 21:10 Constitutional: Positive for body aches, fever. 21:10 All other systems are negative. Exam: 21:10 Head/Face: atraumatic. Eyes: EOMI, no conjunctival erythema appreciated ENT: Moist jm Mucus Membranes Neck: Trachea midline, Supple Chest/axilla: Normal chest wall appearance and motion. Cardiovascular: Regular rate and rhythm. No edema appreciated Respiratory: Normal respirations, no respiratory distress appreciated 21:10 Back: Normal ROM Skin: General appearance color normal MS/ Extremity: Moves all extremities, no obvious deformities appreciated, no edema noted to the lower extremities Neuro: Awake and alert, normal gait Psych: Behavior is normal, Mood is normal, Patient is cooperative and pleasant 21:10 Constitutional: The patient appears alert, awake, anxious, uncomfortable. 21:10 Abdomen/GI: Inspection: abdomen appears normal, Bowel sounds: normal, Palpation: abdomen is soft and non-tender. Vital Signs: 21:05 BP 144 / 94; Pulse 105; Resp 16; Temp 99.1; Pulse Ox 98% on R/A; Weight 58.97 kg (R); ak1 Height 5 ft. 2 in. (157.48 cm) (R); Pain 8/10; 22:15 BP 129 / 104; Pulse 96; Resp 16; Pulse Ox 96% on R/A; jb4 22:50 BP 130 / 101; Pulse 99; Resp 16; Pulse Ox 95% on R/A; jb4 21:05 Body Mass Index 23.78 (58.97 kg, 157.48 cm) ak1 MDM: 21:10 Patient medically screened. [facility] 22:55 Data reviewed: vital signs, nurses notes. Counseling: I had a detailed discussion with [facility] the patient and/or guardian regarding: the historical points, exam findings, and any diagnostic results supporting the discharge/admit diagnosis, lab results, the need for outpatient follow up, to return to the emergency department if symptoms worsen or persist or if there are any questions or concerns that arise at home. ED course: PATIENT EXHIBITS DRUG SEEKING BEHAVIOR. Patient is alert and non toxic in appearance in the ED. CXR negative. UA is negative. Patient is advised to follow up with pcp and otherwise given strict return precautions. patient understood and agrees with the plan of care. . 04/19 21:21 Order name: Basic Metabolic Panel; Complete Time: 22:28 [facility] 04/19 21:21 Order name: CBC with Diff [facility] 04/19 21:21 Order name: Creatinine for Radiology; Complete Time: 22:28 [facility] 04/19 21:21 Order name: Hepatic Function; Complete Time: 22:28 [facility] 04/19 21:21 Order name: Lipase; Complete Time: 22:28 [facility] 04/19 21:22 Order name: Procalcitonin; Complete Time: 22:48 [facility] 04/19 21:22 Order name: Chest Pa And Lat (2 Views) XRAY [facility] 04/19 21:22 Order name: Lactate; Complete Time: 22:48 [facility] 04/19 21:22 Order name: Blood Culture Adult (2) [facility] 04/19 21:26 Order name: Flu [facility] 04/19 22:56 Order name: Urine Dipstick--Ancillary (enter results) [facility] 04/19 22:56 Order name: Urine --Ancillary (enter results) [facility] 04/19 21:21 Order name: IV Saline Lock; Complete Time: 22:00 [facility] 04/19 21:21 Order name: Labs collected and sent; Complete Time: 22:00 [facility] 04/19 21:21 Order name: Urine Dipstick-Ancillary (obtain specimen); Complete Time: 22:42 [facility] 04/19 21:21 Order name: Urine Test (obtain specimen); Complete Time: 22:42 [facility] Administered Medications: 22:00 Drug: NS 0.9% 1000 ml Route: IV; Rate: 1 bolus; Site: right antecubital; jb4 23:00 Follow up: Response: No adverse reaction; IV Status: Completed infusion; IV Intake: jb4 1000ml 22:50 Drug: NS 0.9% 1000 ml Route: IV; Rate: 1 bolus; Site: right antecubital; jb4 23:15 Follow up: Response: No adverse reaction; IV Status: Order to discontinue infusion; PT jb4 refused to continue infusion. 23:05 Not Given (Patient Refused): Ibuprofen 400 mg PO once jb4 Disposition: 04/20 06:56 Co-signature as Attending Physician, Fausto De Anda MD I agree with the assessment and tw4 plan of care. Disposition: 04/19/19 22:57 Discharged to Home. Impression: Malaise and fatigue. - Condition is Stable. - Discharge Instructions: Fatigue. - Medication Reconciliation Form, Thank You Letter, Antibiotic Education, Prescription Opioid Use form. - Follow up: Private Physician; When: 2 - 3 days; Reason: Recheck today's complaints, Continuance of care, Re-evaluation by your physician. Signatures: Dispatcher [employer] EDMS Shelton Capone PA PA jmm Krenek, Amber RN RN ak1 Jens Lynne RN RN jb4 Fausto De Anda MD MD tw4 Corrections: (The following items were deleted from the chart) 04/19 23:16 22:57 04/19/2019 22:57 Discharged to Home. Impression: Malaise and fatigue. Condition jb4 is Stable. Forms are Medication Reconciliation Form, Thank You Letter, Antibiotic Education, Prescription Opioid Use. Follow up: Private Physician; When: 2 - 3 days; Reason: Recheck today's complaints, Continuance of care, Re-evaluation by your physician. charbel
--- NOTE | 2019-04-19 22:59 | ER ---
Nurse's Notes [facility] Name: Carli Hadley Age: 38 yrs Sex: Female : 1980 Arrival Date: 04/19/2019 Time: 20:50 Bed 13 Private MD: Diagnosis: Malaise and fatigue Presentation: 04/19 21:05 Presenting complaint: Patient states: fever, body aches, decreased appetite. pt stated ak1 s/s are intermittent X2 years. pt sees Dr. Hogan at [facility]. Transition of care: patient was not received from another setting of care. Onset of symptoms is unknown. Risk Assessment: Do you want to hurt yourself or someone else? Patient reports no desire to harm self or others. Initial Sepsis Screen: Does the patient meet any 2 criteria? No. Patient's initial sepsis screen is negative. Does the patient have a suspected source of infection? No. Patient's initial sepsis screen is negative. Note pt with pain pump in place - morphine and unknown medication inside. Care prior to arrival: None. 21:05 Method Of Arrival: Ambulatory ak1 21:05 Acuity: CAPRICE 3 ak1 Triage Assessment: 21:08 General: Appears in no apparent distress. Behavior is calm, cooperative. 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 - Social history:: Smoking status: Patient uses tobacco products, smokes one pack cigarettes per day. - Ebola Screening: : No symptoms or risks identified at this time. Screenin:10 Abuse screen: Denies threats or abuse. Nutritional screening: No deficits noted. jb4 Tuberculosis screening: No symptoms or risk factors identified. Fall Risk IV access (20 points). Total Tran Fall Scale indicates No Risk (0-24 pts). Assessment: 21:20 General: Appears in no apparent distress. uncomfortable, Behavior is calm, cooperative, jb4 appropriate for age, Pt reports that current symptoms have been going on for years. "some nights I can handle it and tonight I cannot.". Pain: Complains of pain in Generalized Pain does not radiate. Pain currently is 8 out of 10 on a pain scale. Quality of pain is described as stabbing, Pain began years ago. Neuro: Level of Consciousness is awake, alert, obeys commands, Oriented to person, place, time, situation. Cardiovascular: Patient's skin is warm and dry. Respiratory: Airway is patent Respiratory effort is even, unlabored. GI: No deficits noted. No signs and/or symptoms were reported involving the gastrointestinal system. : No deficits noted. No signs and/or symptoms were reported regarding the genitourinary system. EENT: No deficits noted. No signs and/or symptoms were reported regarding the EENT system. Derm: Skin is intact, Skin is pink, warm \\T\\ dry. Musculoskeletal: Circulation, motion, and sensation intact. Range of motion: intact in all extremities. 22:20 Reassessment: Patient appears in no apparent distress at this time. Patient and/or jb4 family updated on plan of care and expected duration. Pain level reassessed. Patient is alert, oriented x 3, equal unlabored respirations, skin warm/dry/pink. 23:12 Reassessment: Patient appears in no apparent distress at this time. Patient and/or jb4 family updated on plan of care and expected duration. Pain level reassessed. Patient is alert, oriented x 3, equal unlabored respirations, skin warm/dry/pink. PT left Ed ambulatory with steady gait. Refused to sign d/c form. d/c'ed own IV. Vital Signs: 21:05 BP 144 / 94; Pulse 105; Resp 16; Temp 99.1; Pulse Ox 98% on R/A; Weight 58.97 kg (R); ak1 Height 5 ft. 2 in. (157.48 cm) (R); Pain 8/10; 22:15 BP 129 / 104; Pulse 96; Resp 16; Pulse Ox 96% on R/A; jb4 22:50 BP 130 / 101; Pulse 99; Resp 16; Pulse Ox 95% on R/A; jb4 21:05 Body Mass Index 23.78 (58.97 kg, 157.48 cm) ak1 ED Course: 20:50 Patient arrived in ED. ag3 20:54 Shelton Capone PA is PHCP. jmm 20:54 Fausto De Anda MD is Attending Physician. jmm 21:05 Arm band placed on Patient placed in an exam room, on a stretcher, on pulse oximetry, ak1 Patient notified of wait time. 21:07 Triage completed. ak1 21:10 Patient has correct armband on for positive identification. Bed in low position. Call jb4 light in reach. Side rails up X 1. Pulse ox on. NIBP on. 21:46 Jens Lynne, RN is Primary Nurse. jb4 21:57 Inserted saline lock: 20 gauge in right antecubital area, using aseptic technique. cm6 22:14 Chest Pa And Lat (2 Views) XRAY In Process Unspecified. EDMS 23:14 No provider procedures requiring assistance completed. PT d/trevor own IV. jb4 Administered Medications: 22:00 Drug: NS 0.9% 1000 ml Route: IV; Rate: 1 bolus; Site: right antecubital; jb4 23:00 Follow up: Response: No adverse reaction; IV Status: Completed infusion; IV Intake: jb4 1000ml 22:50 Drug: NS 0.9% 1000 ml Route: IV; Rate: 1 bolus; Site: right antecubital; jb4 23:15 Follow up: Response: No adverse reaction; IV Status: Order to discontinue infusion; PT jb4 refused to continue infusion. 23:05 Not Given (Patient Refused): Ibuprofen 400 mg PO once jb4 Intake: 23:00 IV: 1000ml; Total: 1000ml. jb4 Outcome: 22:57 Discharge ordered by . charbel 23:14 Discharged to home ambulatory, with family. jb4 23:14 Condition: stable 23:14 Discharge instructions given to patient, Instructed on discharge instructions, follow up and referral plans. Demonstrated understanding of instructions, follow-up care. 23:16 Patient left the ED. jb4 Signatures: Dispatcher [employer] EDMS Shelton Capone PA PA jmm Krenek Josephine, RN RN ak1 Jens Lynne RN RN jb4 Cynthia Bateman ag3 Martha Luo 6
[2019-04-19 23:41] LABS: Urine Blood 2+ (NEG); Urine Glucose NEGATIVE (NEG); Urine Protein 1+ (NEG); Urine Specific Gravity 1.015 (1.005-1.030)
--- NOTE | 2019-04-20 10:34 | RAD REPORT ---
EXAM DESCRIPTION: RAD - Chest Pa And Lat (2 Views) - 04/19/2019 10:08 pm CLINICAL HISTORY: 8 years Female, FEVER COMPARISON: None FINDINGS: No focal lung consolidation. No pleural effusion. No pneumothorax. Cardiac and mediastinal silhouette is unremarkable. No acute osseous abnormality. IMPRESSION: No acute cardiopulmonary disease. Electronically signed by: Jorge Mann DO 04/19/2019 10:36 PM CDT Due to temporary technical issues with the PACS/Fluency reporting system, reports are being signed by the in house radiologist as a courtesy to ensure prompt reporting. The interpreting radiologist is f ully responsible for the content of the report.
== END 2019-04-19 23:16 | disposition home or self-care (01) ==
LOC: ER 20:47
DX: R53.81 Other malaise (principal); R53.83 Other fatigue; Z88.8 Allergy status to other drugs, medicaments and biological substances
CPT/HCPCS: 87040 ×2; 85025; 80048; 36415; 81025; 80076; 83605; 81003; 83690; 84145; 87804 ×2; 71046; 96360; 99284; J7030 ×2

== ENCOUNTER 2020-09-04 02:48 | Emergency (ER) | payer OTHER ==
--- OUTSIDE RECORDS SUMMARY | 2020-09-04 02:50 | XMS REPORT | Clinical Summary ---
:1980 Author Organization [facility] Address [address] [place] [address] Care Team Providers Name Role Phone Shabnam Joy MD Primary Care Provider Allergies Active Allergy Reactions Severity Noted Date Comments Prochlorperazine Hives 09/24/2018 Elevated HR Gabapentin 09/24/2018 Stiff joints Cyproheptadine 09/24/2018 Stiff joints Promethazine Hives 09/24/2018 Elevated HR Carbamazepine 09/24/2018 Stiff joints Medications Medication Sig Dispensed Refills Start Date End Date Status HYDROcodone-acetamin Take 1 tablet by 0 09/10/2018 Active ophen (NORCO) mouth 2 (two) times 7.5-325 mg per a day. tablet carvedilol (COREG) Take 25 mg by mouth 0 09/02/2018 Active 25 MG tablet 2 (two) times a day. tiZANidine Take 4 mg by mouth 2 0 08/30/2018 Active (ZANAFLEX) 4 MG (two) times a day. tablet sodium chloride 0.9% by intrathecal route 0 Active parenteral solution continuously. Active Problems Problem Noted Date Smoker 10/26/2018 Essential hypertension 08/17/1999 Overview: On coreg Chronic pain Overview: chronic back pain s/p surgeries x 4 and now with morphine pump and norco managed by pain specialist Surgical History Surgery Date Site/Laterality Comments COLONOSCOPY 08/17/2014 - 08/16/2015 COSMETIC SURGERY SECTION 08/17/2004 - 08/16/2005 SINUS SURGERY 08/17/1998 - 08/16/1999 SPINE SURGERY 2009,2010,2011,2014,2016 x 3 and then a pump surgery TUBAL LIGATION 08/17/2004 - 08/16/2005 Medical History Medical History Date Comments Hypertension 2000 Seizures (HCC) 2012 Chronic pain Osteoarthritis 10/26/2018 Family History Medical History Relation Name Comments Diabetes Brother Jed Reeder Arthritis Father Tommy Strange Cancer Maternal Grandfather Rigoberto Mak Breast Cancer Maternal Grandmother Sisi Kelton Breast Arthritis Mother Megan Strange Heart disease Mother Megan Strange Stroke Mother Megan Strange Cancer Paternal Grandfather N/A Lung Cancer Paternal Grandmother Evy Vasqueznge Cancer Sister Wendy Maya Relation Name Status Comments Brother Jed Reeder Father Tommy Strange Alive Maternal Grandfather Rigoberto Mak Maternal Grandmother Sisi Kelton Mother Megan Vasqueznge Alive Paternal Grandfather N/A Paternal Grandmother Evy Strange Sister Wendy Vasquezngjett Social History Tobacco Use Types Packs/Day Years Used Date Current Every Day Smoker Cigarettes 1 15 Smokeless Tobacco: Never Used Alcohol Use Drinks/Week oz/Week Comments No Sex Assigned at Date Recorded Not on file Last Filed Vital Signs Not on file Plan of Treatment Health Maintenance Due Date Last Done Comments COVID-19 VACCINE (1 of 2) 1998 CERVICAL CANCER SCREENING 12/24/2003 INFLUENZA VACCINE 03/17/2020 Results Not on fileafter 09/04/2019 Insurance Payer Benefit Plan / Subscriber ID Effective Dates Phone Addre ss Type Group BCBS BCBS CHOICE [id number] 2017-Present PPO PPO/FEDERAL EMPL PPO MEDICARE MEDICARE PART A [id number] 2012-Present [facility] [place] Medicare AND B Advance Directives For more information, please contact: [phone] Type Date Recorded 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
[2020-09-04 04:02] LABS: ALT/SGPT 18 U/L (12-78); AST/SGOT 12 U/L (15-37); Albumin 3.8 g/dL (3.4-5.0); Alkaline Phosphatase 45 U/L (45-117); BUN Blood Urea Nitrogen 13 mg/dL (7-18); Bicarbonate 26 mmol/L (21-32); Bilirubin Total 0.4 mg/dL (0.2-1.0); Glucose Level 113 mg/dL (74-106); Potassium 4.1 mmol/L (3.5-5.1); Protein, Total 7.4 g/dL (6.4-8.2); Sodium Level 143 mmol/L (136-145)
[2020-09-04] MEDS ORDERED: HYDROCODONE/APAP 5/325 MG TAB ONE (04:16)
--- NOTE | 2020-09-04 04:19 | EDPHYS ---
Physician Documentation [facility] Name: Carli Hadley Age: 39 yrs Sex: Female : 1980 Arrival Date: 09/04/2020 Time: 02:50 Bed 5 Private MD: ED Physician Aureliano York HPI: 09/04 04:17 This 39 yrs old Female presents to ER via Ambulatory with complaints of Leg ma2 Pain. 04:17 The patient presents with pain. Onset: The symptoms/episode began/occurred gradually, 1 ma2 week(s) ago. Associated signs and symptoms: Pertinent negatives numbness, tingling, weakness. Severity of symptoms: At their worst the symptoms were moderate, severe, in the emergency department the symptoms are unchanged. The patient has experienced similar episodes in the past. Historical: - Allergies: 03:03 Compazine; dm5 03:03 Neurontin; dm5 03:03 periactin; dm5 03:03 Phenergan; dm5 03:03 Tegretol; dm5 03:03 Toradol; dm5 - PMHx: 03:03 Hypertension; Multiple Sclerosis; dm5 - PSHx: 03:03 Back Surgery; pain pump; Tubal ligation; dm5 - Immunization history:: Adult Immunizations not up to date. - Family history:: not pertinent. - Social history:: Smoking status: Patient reports the use of cigarette tobacco products. ROS: 04:17 Constitutional: Negative for fever, chills, and weight loss. ma2 04:17 All other systems are negative. Exam: 04:17 Constitutional: This is a well developed, well nourished patient who is awake, alert, ma2 and in no acute distress. Eyes: Pupils equal round and reactive to light, extra-ocular motions intact. Lids and lashes normal. Conjunctiva and sclera are non-icteric and not injected. Cornea within normal limits. Periorbital areas with no swelling, redness, or edema. Chest/axilla: Normal chest wall appearance and motion. Nontender with no deformity. No lesions are appreciated. Cardiovascular: Regular rate and rhythm with a normal S1 and S2. No gallops, murmurs, or rubs. Normal PMI, no JVD. No pulse deficits. Respiratory: Lungs have equal breath sounds bilaterally, clear to auscultation and percussion. No rales, rhonchi or wheezes noted. No increased work of breathing, no retractions or nasal flaring. Abdomen/GI: Soft, non-tender, with normal bowel sounds. No distension or tympany. No guarding or rebound. No evidence of tenderness throughout. Back: No spinal tenderness. No costovertebral tenderness. Full range of motion. Skin: Warm, dry with normal turgor. Normal color with no rashes, no lesions, and no evidence of cellulitis. MS/ Extremity: Pulses equal, no cyanosis. Neurovascular intact. Full, normal range of motion. Neuro: Awake and alert, GCS 15, oriented to person, place, time, and situation. Cranial nerves II-XII grossly intact. Motor strength 5/5 in all extremities. Sensory grossly intact. Cerebellar exam normal. Normal gait. Vital Signs: 03:30 BP 124 / 86; Pulse 89; Resp 18; Pulse Ox 100% on R/A; sg MDM: 03:18 Patient medically screened. vt2 04:17 Differential diagnosis: contusion, abrasion, tendonitis. Data reviewed: vital signs, ma2 nurses notes. Counseling: I had a detailed discussion with the patient and/or guardian regarding: the historical points, exam findings, and any diagnostic results supporting the discharge/admit diagnosis, the presence of at least one elevated blood pressure reading (>120/80) during this emergency department visit, the need for outpatient follow up. Response to treatment: the patient's symptoms have markedly improved after treatment. 09/04 03:19 Order name: CMP; Complete Time: 04:13 vt2 Administered Medications: 04:00 Drug: [place] 5 mg-325 mg 1 tabs Route: PO; sg 04:27 Not Given (Duplicate Order): Dilaudid 1 mg IM once; RASS on ADMIN: Combtv4, Very sg Agttd3, Agttd2, Rstlss1, AlertClm0, Drwsy-1, Lt Sdtn-2, Mod Sdtn-3, Dp Sdtn-4, UnArsble-5 04:27 Drug: Dilaudid 1 mg {Note: RASS -1..} Route: IVP; Site: right antecubital; sg Disposition: 09/04/20 04:18 Discharged to Home. Impression: Muscle spasm of calf - bilateral . - Condition is Stable. - Discharge Instructions: Muscle Cramps and Spasms. - Medication Reconciliation Form, Thank You Letter, Antibiotic Education, Prescription Opioid Use form. - Follow up: Private Physician; When: Tomorrow; Reason: Continuance of care. Signatures: Dispatcher [employer] Gisell Reynolds RN RN dm5 Arsen Anaya RN RN sg Alzahri, Mohammad, MD MD ma2 Corrections: (The following items were deleted from the chart) 04:29 04:18 09/04/2020 04:18 Discharged to Home. Impression: Muscle spasm of calf - bilateral sg . Condition is Stable. Forms are Medication Reconciliation Form, Thank You Letter, Antibiotic Education, Prescription Opioid Use. Follow up: Private Physician; When: Tomorrow; Reason: Continuance of care. ma2
--- NOTE | 2020-09-04 04:19 | ER ---
Nurse's Notes [facility] Name: Carli Hadley Age: 39 yrs Sex: Female : 1980 Arrival Date: 09/04/2020 Time: 02:50 Bed 5 Private MD: Diagnosis: Muscle spasm of calf-bilateral Presentation: 09/04 03:00 Chief complaint: Patient states: leg cramps x 2 weeks, states she has low potassium and dm5 has been taking potassium supplements. Coronavirus screen: Client denies travel out of the [place] in the last 14 days. At this time, the client does not indicate any symptoms associated with coronavirus-19. Ebola Screen: Patient negative for fever greater than or equal to 101.5 degrees Fahrenheit, and additional compatible Ebola Virus Disease symptoms Patient denies exposure to infectious person. Patient denies travel to an Ebola-affected area in the 21 days before illness onset. No symptoms or risks identified at this time. Onset of symptoms was September 04, 2020. 03:00 Method Of Arrival: Ambulatory dm5 03:00 Acuity: CAPRICE 4 dm5 04:00 Initial Sepsis Screen: Does the patient meet any 2 criteria? No. Patient's initial sg sepsis screen is negative. Does the patient have a suspected source of infection? No. Patient's initial sepsis screen is negative. Risk Assessment: Do you want to hurt yourself or someone else? Patient reports no desire to harm self or others. Historical: - Allergies: 03:03 Compazine; dm5 03:03 Neurontin; dm5 03:03 periactin; dm5 03:03 Phenergan; dm5 03:03 Tegretol; dm5 03:03 Toradol; dm5 - PMHx: 03:03 Hypertension; Multiple Sclerosis; dm5 - PSHx: 03:03 Back Surgery; pain pump; Tubal ligation; dm5 - Immunization history:: Adult Immunizations not up to date. - Family history:: not pertinent. - Social history:: Smoking status: Patient reports the use of cigarette tobacco products. Screenin:30 Abuse screen: Denies threats or abuse. Denies injuries from another. Nutritional sg screening: No deficits noted. Tuberculosis screening: No symptoms or risk factors identified. Never had TB. 03:30 Fall Risk None identified. sg Assessment: 03:15 General: Appears in no apparent distress. well groomed, well developed, well nourished, sg Behavior is calm, cooperative, appropriate for age. Pain: Complains of pain in right leg and left leg Quality of pain is described as aching, sore. Neuro: Level of Consciousness is awake, obeys commands, drowsy. Cardiovascular: Patient's skin is warm and dry. Chest pain is denied. Respiratory: Airway is patent Respiratory effort is even, unlabored, Respiratory pattern is regular, symmetrical. GI: No signs and/or symptoms were reported involving the gastrointestinal system. : No signs and/or symptoms were reported regarding the genitourinary system. EENT: No signs and/or symptoms were reported regarding the EENT system. Derm: Skin is pink, warm \T\ dry. Musculoskeletal: Circulation, motion, and sensation intact. Range of motion: intact in all extremities. Vital Signs: 03:30 BP 124 / 86; Pulse 89; Resp 18; Pulse Ox 100% on R/A; sg ED Course: 02:50 Patient arrived in ED. ag3 02:58 Arsen Anaya, KATHARINE is Primary Nurse. sg 03:00 Arm band placed on. sg 03:01 Triage completed. dm5 03:18 Aureliano York MD is Attending Physician. ma2 03:41 Inserted saline lock: 20 gauge in right antecubital area, using aseptic technique. oe Blood collected. 04:00 Patient has correct armband on for positive identification. Bed in low position. Call sg light in reach. Side rails up X2. Pulse ox on. NIBP on. Warm blanket given. Head of bed elevated. 04:00 No provider procedures requiring assistance completed. IV discontinued, intact, sg bleeding controlled, No redness/swelling at site. Pressure dressing applied. Administered Medications: 04:00 Drug: [place] 5 mg-325 mg 1 tabs Route: PO; sg 04:27 Not Given (Duplicate Order): Dilaudid 1 mg IM once; RASS on ADMIN: Combtv4, Very sg Agttd3, Agttd2, Rstlss1, AlertClm0, Drwsy-1, Lt Sdtn-2, Mod Sdtn-3, Dp Sdtn-4, UnArsble-5 04:27 Drug: Dilaudid 1 mg {Note: RASS -1..} Route: IVP; Site: right antecubital; sg Outcome: 04:18 Discharge ordered by MD. galeano 04:20 Discharged to home via wheelchair, with family. sg 04:20 Condition: improved 04:20 Discharge instructions given to patient, Instructed on discharge instructions, safety practices, Demonstrated understanding of instructions, follow-up care. 04:29 Patient left the ED. sg Signatures: Gisell De La Rosa RN RN dm5 Arsen Anaya RN RN sg Dung Morales Mohammad, MD MD ma2 Cynthia Bateman3
[2020-09-04] MEDS ORDERED: HYDROMORPHONE HCL 1 MG/ML INJ ONE (04:35)
[2020-09-04 04:40] VITALS: BP 124/86; O2SAT 100
== END 2020-09-04 04:29 | disposition home or self-care (01) ==
LOC: ER 02:48
DX: M62.831 Muscle spasm of calf (principal); I10 Essential (primary) hypertension; Z72.0 Tobacco use; Z88.1 Allergy status to other antibiotic agents; Z88.5 Allergy status to narcotic agent; Z88.8 Allergy status to other drugs, medicaments and biological substances
CPT/HCPCS: 36415; 80053; J1170; 96374; 99284

== ENCOUNTER 2020-10-12 22:16 | Emergency (ER) | payer OTHER ==
[2020-10-12 22:50] LABS: Absolute Lymphocytes (CBC) 1.3 K/uL (0.7-4.9); Basophils % 0.7 % (0-1.3); Hematocrit 41.2 % (36.0-45.0); Lymphocytes % 20.7 % (15.3-44.8); MPV 8.3 fL (7.6-11.3); RBC Red Blood Cell Count 4.33 M/uL (3.86-4.86)
[2020-10-12] MEDS ORDERED: NA CHLORIDE 0.9% 100 ML ONE (23:01)
[2020-10-12] MEDS ORDERED: NA CHLORIDE 0.9% 1,000 ML ONE (23:01)
[2020-10-12] MEDS ORDERED: HYDROCODONE/APAP 10/325 TAB ONE (23:01)
[2020-10-12] MEDS ORDERED: METHOCARBAMOL 1,000 MG/10 ML VIAL IV ONE (23:01)
[2020-10-12 23:02] LABS: BUN Blood Urea Nitrogen 10 mg/dL (7-18); Bicarbonate 24 mmol/L (21-32); Glucose Level 103 mg/dL (74-106); Potassium 4.2 mmol/L (3.5-5.1); Sodium Level 142 mmol/L (136-145)
--- NOTE | 2020-10-12 23:08 | ER ---
Nurse's Notes [facility] Name: Carli Hadley Age: 39 yrs Sex: Female : 1980 Arrival Date: 10/12/2020 Time: 22:18 Bed 23 Private MD: Diagnosis: Calf pain Presentation: 10/12 22:21 Chief complaint: Patient states: Bilateral leg pain and cramps for the last couple sf days, hx kypokalemia and MS. Coronavirus screen: Client denies travel out of the [place] in the last 14 days. At this time, the client does not indicate any symptoms associated with coronavirus-19. Ebola Screen: Patient negative for fever greater than or equal to 101.5 degrees Fahrenheit, and additional compatible Ebola Virus Disease symptoms Patient denies exposure to infectious person. Patient denies travel to an Ebola-affected area in the 21 days before illness onset. No symptoms or risks identified at this time. Initial Sepsis Screen: Does the patient meet any 2 criteria? No. Patient's initial sepsis screen is negative. Does the patient have a suspected source of infection? No. Patient's initial sepsis screen is negative. Risk Assessment: Do you want to hurt yourself or someone else? Patient reports no desire to harm self or others. Onset of symptoms was October 10, 2020. 22:21 Method Of Arrival: EMS: [facility] 22:21 Acuity: CAPRICE 3 sf Triage Assessment: 22:31 General: Appears in no apparent distress. comfortable, Behavior is calm, cooperative. sf Pain: Complains of pain in right leg and left leg Pain currently is 8 out of 10 on a pain scale. Quality of pain is described as crampy. Neuro: No deficits noted. Level of Consciousness is awake, alert, obeys commands, Oriented to person, place, time, situation, Appropriate for age. Cardiovascular: Patient's skin is warm and dry. Rhythm is sinus tachycardia. Respiratory: No deficits noted. Airway is patent Respiratory effort is even, unlabored, Respiratory pattern is regular, symmetrical. GI: No signs and/or symptoms were reported involving the gastrointestinal system. : No signs and/or symptoms were reported regarding the genitourinary system. Musculoskeletal: Circulation, motion, and sensation intact. Reports pain in right leg and left leg. 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 - Social history:: Smoking status: Patient denies any tobacco usage or history of. Patient/guardian denies using alcohol, street drugs, IV drugs. Screenin:30 Abuse screen: Denies threats or abuse. Denies injuries from another. Nutritional sf screening: No deficits noted. Nutritional screening: No deficits noted. Tuberculosis screening: No symptoms or risk factors identified. Never had TB. Possible symptoms: None Risk factors: None. Fall Risk None identified. No fall in past 12 months (0 pts). Secondary diagnosis (15 points) MS. IV access (20 points). Ambulatory Aid- None/Bed Rest/Nurse Assist (0 pts). Gait- Impaired (20 pts.). Mental Status- Oriented to own ability (0 pts). Total Tran Fall Scale indicates High Risk Score (45 or more points). Fall prevention measures have been instituted. Side Rails Up X 2 Placed Close to Nursing Station Family Present and informed to notify staff if the need to leave the bedside. Assessment: 22:33 Reassessment: SEE TRIAGE NOTE. sf 22:49 Reassessment: Patient states "if he isn't going to give me anything for pain there's no sf point in staying. I can be miserable at home. The only that works is a pain shot." Explained she was just given a 10 mg Lortab for pain and Dr. Casarez has not prescribed IV pain medications. Patient debating leaving. Explained she hasn't given the medications a change to work because she hasn't had them all, still have Robaxin IPVB to give. Explained it is a muscle relaxer. Patient states "I have muscle relaxers at home, they don't work." Explained that IV medications may work better than PO. Patient willing to try meds, wanting to talk to the MD. Dr. Casarez aware. 23:07 Reassessment: Patient pulled IV out and threw it on the ground with NS and Robaxin sf still running, Ambulated out of the department without difficulty. KATHARINE Leger Charge and Dr. Casarez aware. 23:08 Reassessment: pt visualized walking out of the exam room 23 with steady gait sg accompanied by family/friend. notified pt has left the ED without discharge papers at this time. Vital Signs: 22:21 BP 126 / 104; Pulse 108; Resp 16; Temp 99.4; Pulse Ox 97% ; Weight 54.43 kg; Height 5 sf ft. 2 in. (157.48 cm); Pain 8/10; 22:30 BP 130 / 96; Pulse 110; Resp 18; Pulse Ox 95% ; sf 22:21 Body Mass Index 21.95 (54.43 kg, 157.48 cm) sf ED Course: 22:18 Patient arrived in ED. cl3 22:20 Omar Casarez MD is Attending Physician. ps1 22:21 Arsen Lyon RN is Primary Nurse. sf 22:29 Triage completed. sf 22:31 Arm band placed on right wrist. sf 22:31 Patient has correct armband on for positive identification. Placed in gown. Bed in low sf position. Call light in reach. Side rails up X2. Adult w/ patient. account collector on. Pulse ox on. NIBP on. Door closed. Noise minimized. Lights dimmed. 22:35 Initial lab(s) drawn, by me, sent to lab. Inserted saline lock: 20 gauge in right sf antecubital area, using aseptic technique. Blood collected. 23:07 No provider procedures requiring assistance completed. sf 23:09 IV discontinued, Pulled out by patient and thrown on the floor of the room with NS and sf Robaxin still running, patient left AMA, not able to assess IV insertion site. Administered Medications: 22:48 Drug: NS 0.9% 1000 ml Route: IV; Rate: 1 bolus; Site: right antecubital; sf 23:08 Follow up: IV Status: Completed infusion; Patient self D/C IV sf 22:49 Drug: [place] 10 mg-325 mg 1 tabs Route: PO; sf 22:50 Drug: Robaxin 1 grams Route: IVPB; Infused Over: 1 hrs; Site: right antecubital; sf 23:08 Follow up: IV Status: Completed infusion; Patient self D/C IV sf Intake: Outcome: 23:08 Discharge ordered by . ps1 23:10 Discharged to home ambulatory, with friend. sf 23:10 Condition: stable 23:12 Patient left the ED. sf Signatures: Arsen Anaya, RN RN sg Omar Casarez MD MD ps1 Edmundo Angel cl3 Arsen Lyon RN RN sf Corrections: (The following items were deleted from the chart) :10/11 23:30 BP 130 / 96; Pulse 110bpm; Resp 18bpm; Pulse Ox 95%; sf sf 10/12 23:27 10/11 22:30 LMP N/A - control method sf sf
--- NOTE | 2020-10-12 23:09 | EDPHYS ---
Physician Documentation [facility] Name: Carli Hadley Age: 39 yrs Sex: Female : 1980 Arrival Date: 10/12/2020 Time: 22:18 Bed 23 Private MD: ED Physician Omar Casarez HPI: 10/12 22:22 This 39 yrs old Female presents to ER via Unassigned with complaints of Leg ps1 Pain. 22:22 patient has a history of MS. No hx of DVT. Presenting with muscle cramps localized to ps1 bilateral calves. She states that she has had symptoms like this before in the past and was associated with potassium abnormalities. She is not on a diuretic and does not know the etiology of her low potassium. Taking Coreg for BP. On steroids for MS. Managed by Dr. Parson for MS and has a pain pump. . 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 - Social history:: Smoking status: Patient denies any tobacco usage or history of. Patient/guardian denies using alcohol, street drugs, IV drugs. ROS: 22:22 Constitutional: Negative for fever, chills, and weight loss, Eyes: Negative for injury, ps1 pain, redness, and discharge, Cardiovascular: Negative for chest pain, palpitations, and edema, Respiratory: Negative for shortness of breath, cough, wheezing, and pleuritic chest pain, Abdomen/GI: Negative for abdominal pain, nausea, vomiting, diarrhea, and constipation. 22:22 Neuro: Negative for headache, weakness, numbness, tingling, and seizure. 22:22 MS/extremity: Positive for cramps in calves. Exam: 22:22 Constitutional: This is a well developed, well nourished patient who is awake, alert, ps1 and in no acute distress. Head/Face: Normocephalic, atraumatic. Eyes: Pupils equal round and reactive to light, extra-ocular motions intact. Lids and lashes normal. Conjunctiva and sclera are non-icteric and not injected. Cardiovascular: Regular rate and rhythm. No gallops, murmurs, or rubs. Normal PMI, no JVD. No pulse deficits. Respiratory: Lungs have equal breath sounds bilaterally, clear to auscultation and percussion. No rales, rhonchi or wheezes noted. No increased work of breathing, no retractions or nasal flaring. Abdomen/GI: Soft, non-tender, with normal bowel sounds. No distension or tympany. No guarding or rebound. No evidence of tenderness throughout. Skin: Warm, dry with normal turgor. Normal color with no rashes, no lesions, and no evidence of cellulitis. MS/ Extremity: Pulses equal, no cyanosis. Neurovascular intact. Full, normal range of motion. Neuro: Awake and alert, GCS 15, oriented to person, place, time, and situation. Cranial nerves II-XII grossly intact. Sensory grossly intact. Vital Signs: 22:21 BP 126 / 104; Pulse 108; Resp 16; Temp 99.4; Pulse Ox 97% ; Weight 54.43 kg; Height 5 sf ft. 2 in. (157.48 cm); Pain 8/10; 22:30 BP 130 / 96; Pulse 110; Resp 18; Pulse Ox 95% ; sf 22:21 Body Mass Index 21.95 (54.43 kg, 157.48 cm) sf MDM: 22:28 Patient medically screened. ps1 23:09 Differential diagnosis: Calf pain, metabolic derangements, MS, and others. Data ps1 reviewed: vital signs, lab test result(s). Counseling: I had a detailed discussion with the patient and/or guardian regarding: the historical points, exam findings, and any diagnostic results supporting the discharge/admit diagnosis, lab results, the need for outpatient follow up, to return to the emergency department if symptoms worsen or persist or if there are any questions or concerns that arise at home. 10/12 22:22 Order name: CBC with Diff; Complete Time: 22:58 ps1 10/12 22:22 Order name: BMP; Complete Time: 23:05 ps1 10/12 22:22 Order name: Urine Dipstick-Ancillary (obtain specimen) ps1 Administered Medications: 22:48 Drug: NS 0.9% 1000 ml Route: IV; Rate: 1 bolus; Site: right antecubital; sf 23:08 Follow up: IV Status: Completed infusion; Patient self D/C IV sf 22:49 Drug: [place] 10 mg-325 mg 1 tabs Route: PO; sf 22:50 Drug: Robaxin 1 grams Route: IVPB; Infused Over: 1 hrs; Site: right antecubital; sf 23:08 Follow up: IV Status: Completed infusion; Patient self D/C IV sf Disposition: 10/12/20 23:08 Discharged to Home. Impression: Calf pain. - Condition is Stable. - Discharge Instructions: Muscle Cramps and Spasms. - Medication Reconciliation Form, Thank You Letter, Antibiotic Education, Prescription Opioid Use form. - Follow up: Private Physician; When: As needed; Reason: Continuance of care. Follow up: Emergency Department; When: As needed; Reason: Worsening of condition. - Problem is chronic. - Symptoms are unchanged. Signatures: Dispatcher [employer] EDAL Omar Casarez MD MD ps1 Arsen Lyon RN RN sf Corrections: (The following items were deleted from the chart) 23:12 23:08 10/12/2020 23:08 Discharged to Home. Impression: Calf pain. Condition is Stable. sf Forms are Medication Reconciliation Form, Thank You Letter, Antibiotic Education, Prescription Opioid Use. Follow up: Private Physician; When: As needed; Reason: Continuance of care. Follow up: Emergency Department; When: As needed; Reason: Worsening of condition. Problem is chronic. Symptoms are unchanged. ps1
[2020-10-13 01:50] VITALS: BP 126/104; TEMP 99.4; O2SAT 97
== END 2020-10-12 23:12 | disposition home or self-care (01) ==
LOC: ER 22:16
DX: M79.661 Pain in right lower leg (principal); R25.2 Cramp and spasm; M79.662 Pain in left lower leg; G35 Multiple sclerosis; I10 Essential (primary) hypertension; Z88.1 Allergy status to other antibiotic agents; Z88.5 Allergy status to narcotic agent; Z88.6 Allergy status to analgesic agent; Z88.8 Allergy status to other drugs, medicaments and biological substances
CPT/HCPCS: 96365; 85025; 80048; 36415; 99284; J7030; J2800

== ENCOUNTER 2022-05-03 03:54 | Emergency (ER) | payer OTHER ==
--- OUTSIDE RECORDS SUMMARY | 2022-05-03 03:58 | XMS REPORT | Continuity of Care Document ---
:1980 Author Organization [facility] t Address [address] [place] [address] Dr. Chen [address] [place] [id number] Care Team Providers Name Role Phone Rufino SORTO, Shabnam Renee Primary Care Physician [phone] BENNETT ROQUE Attending Clinician Unavailable Therapy, [facility] Covid Infusion Attending Clinician Unavailable Bennett Roque MD Attending Clinician Maurizio PAC, K Aliyah Attending Clinician Padmini Velasquez MD Attending Clinician PADMINI VELASQUEZ Attending Clinician Unavailable Pob, Adc Lab Main Attending Clinician Unavailable Gonzalez Tubbs MD Attending Clinician GONZALEZ TUBBS Attending Clinician Unavailable Doctor Unassigned, [place] Attending Clinician Unavailable Payers Payer Name Policy Type Policy Number Effective Date Expiration Date Jose Alejandro bahena MEDICARE PART A [id number] 2012 \\T\\ B 00:00:00 MEDICAID [facility] [id number] 2020 00:00:00 BCBS [facility] [id number] 2020 00:00:00 Problems Condition Condition Condition Status Onset Resolution Last Treating Co mments Source Name Details Category Date Date Treatment Clinician Date Smoker Smoker Disease Active Methodi [facility] 00[facility]: Hospita 00 l Essential Essential Disease Active Overview: Methodi hypertensi hypertensi - Formattin on 00:00: g of this Hospita 00 note l might be different from the original. On coreg Chronic Chronic Disease Active Overview: Meth reji pain pain Formattin st g of this Hospita note l might be different from the original. chronic back pain s/p surgeries x 4 and now with morphine pump and norco managed by pain specialis t Allergies, Adverse Reactions, Alerts Allergy Allergy Status Severity Reaction(s) Onset Inactive Treating Comm ents Source Name Type Date Date Clinician PROMETHA DRUG Active Palpitations Un deborah ZINE INGREDI 12-13 ity of 00:00: [place] 00 Medical Branch PROCHLOR DRUG Active Palpitations Un deborah PERAZINE INGREDI 12-13 ity of 00:00: Medical Branch CARBAMAZ DRUG Active Palpitations Un deborah EPINE INGREDI 12-13 ity of 00:00: Medical Branch GABAPENT DRUG Active Palpitations Un deborah IN INGREDI 12-13 ity of 00:00: Medical Branch PERIACTI DRUG Active Other-Cmnt Univ ers N 12-13 ity of 00:00: [place] 00 Medical Branch Prochlor Propensi Active Palpitations Univers perazine ty to 12-13 ity of adverse 00:00: [place] reaction 00 Medical s Branch Gabapent Propensi Active Palpitations 2020- Univers in ty to 12-13 ity of adverse 00:00: [place] reaction 00 Medical s Branch Periacti Propensi Active Other - See Joint U nivers n ty to comments 12-13 stiffness ity o f adverse 00:00: . [place] reaction 00 Medical s Branch Prometha Propensi Active Palpitations Univers zine ty to 12-13 ity of adverse 00:00: [place] reaction 00 Medical s Branch Carbamaz Propensi Active Palpitations Univers epine ty to 12-13 ity of adverse 00:00: [place] reaction 00 Medical s Branch Prochlor Propensi Active Hives Elevated Meth reji perazine ty to 2-[address] adverse 00:00: Hospita reaction 00 l s to drug Gabapent Propensi Active Stiff Method i in ty to 2-[address] adverse 00:00: Hospita reaction 00 l s to drug Cyprohep Propensi Active Stiff Method i tadine ty to 2-[address] adverse 00:00: Hospita reaction 00 l s to drug Prometha Propensi Active Hives Elevated Meth reji zine ty to 2-[address] adverse 00:00: Hospita reaction 00 l s to drug Carbamaz Propensi Active Stiff Method i epine ty to 2-[address] adverse 00:00: Hospita reaction 00 l s to drug NO KNOWN Drug Active Univers ALLERGIE Class ity of S [facility] Family History Family Member Diagnosis Comments Start Date Stop Date Source Maternal grandmother Cancer [facility] Natural mother Arthritis [facility] Natural mother Heart disease [facility] Natural mother Stroke [facility] Paternal grandfather Cancer [facility] Paternal grandmother Cancer [facility] Natural sister Cancer [facility] Natural brother Diabetes [facility] Natural father Arthritis [facility] Maternal grandfather Cancer [facility] Social History Social Habit Start Date Stop Date Quantity Comments Source Exposure to Not sure [facility] SARS-CoV-2 (event) [facility] History of tobacco Cigarette Smoker [facility] Alcohol intake 2018-10-26 2018-10-26 Current [facility] 00:00:00 00:00:00 non-drinker of Hospital alcohol (finding) Cigarettes smoked 2018-09-24 2018-09-24 [facility] current (pack per 00:00:00 00:00:00 Hospita l day) - Reported Cigarette 2018-09-24 2018-09-24 [facility] pack-[facility] 00:[facility]:00 00:00:00 Hospital Tobacco use and 2018-09-24 2018-09-24 Smokeless [facility] exposure 00:00:00 00:00:00 tobacco non-user Hospital Sex Assigned At [birth year] [facility] 00:00:[facility]:00 [facility] Smoking Status Start Date Stop Date Source Unknown if ever smoked [facility] Smokes tobacco daily 2018-09-24 00:00:00 [facility] Medications Ordered Filled Start Stop Current Ordering Indication Dosage Frequency Signature Comments Components Source Medication Medication Date Date Medication? Clinician (SIG) Name Name casizzyvimavasquez 2021- No [id number] 1200mg Univers -imdevimab 04-04 ity of 1200 mg in 21:45: 21:43 [place] 60 mL NS 00 :00 Medical MINI-BAG [place] casirivimab 2020- No [id number] 1200mg 1,200 mg, Univers -imdevimab 04-04 IV ity of 1200 mg in 21:45: 21:43 Infusion, [place] 60 mL NS 00 :00 ONCE, Medical MINI-BAG Administer Branc h over 20 Minutes, Veronica 04/04/21 at 1645, For 1 dose
Ad gelatin maker utility as an IV infusion via pump or gravity through an intravenou s line containing a sterile, in-line or add-on 0.2-micron polyethers ulfone (PES) filter. Stable 36 hours refrigerat ed; 4 hours at room temperatur e.
ondansetron 2020- No 4mg 4 mg, Slow Univers (ZOFRAN 12-14-30 IV Push, ity of (PF)) 03:15: 03:10 ONCE, 1 [place] injection 4 00 :00 dose, Veronica Med ical mg 12/13/20 at Branch 2215, KWAME maalox:diph No 15mL 15 mL, Uni vers enhydrAMINE 12-14 04-30 Oral ity of :lidocaine 03:15: 03:10 ([place] 2 % viscous 00 :00 Swallow), Med ical 1:1:1 ONCE, 1 Branch (FIRST-MOUT dose, [facility] HWASH BLM) 12/13/20 at oral 2215, suspension Routine 15 mL famotidine No 20mg 20 mg, IV U nivers 20 mg in NS 12-14 04-30 Piggyback, i ty of 50 ml 03:15: 03:42 ONCE, 1 [place] (PEPCID) 20 00 :00 dose, Veronica Med ical mg/50 mL 12/13/20 at Branc h Piggyback 2215, 50 20 mg mL NaCl 0.9% 2020- No 1000mL at 999 Uni vers (NS) bolus 30 04-30 mL/hr, ity of infusion 03:15: 03:40 1,000 mL, Angel as 1,000 mL 00 :00 IV Medical Infusion, Branch ONCE, 1 dose, Veronica 12/13/20 at 2215, STAT ondansetron 2020-0 2021- No 4mg 4 mg, Slow Univers (ZOFRAN 4-30 04-30 IV Push, ity of (PF)) 01:45: 00:43 ONCE, 1 [place] injection 4 00 :00 dose, Veronica Med ical mg 12/13/20 at Branch 2045, KWAME sodium 2020-0 Yes 5mL 5 mL, Univers chloride 4-30 Intravenou ity o f (NS) 00:32: s, PRN, [place] injection 5 34 Starting Medi eder mL Veronica Branch 12/13/20 at 1932, Until Discontinu ed, Routine, IV line flushing famotidine 0 Yes [id number] 40mg Take 1 U nivers (PEPCID) 40 4-29 tablet by ity of mg tablet 00:00: mouth [place] 00 daily. Medical Branch ondansetron 0 Yes [id number] 4mg Take 1 Univers (ZOFRAN 4-29 tablet by ity of ODT) 4 mg 00:00: mouth [place] disintegrat 00 every 8 Medic al ing tablet (eight) Branch hours as needed for Nausea and Vomiting (N/V). famotidine 0 Yes [id number] 40mg Take 1 U nivers (PEPCID) 40 4-29 tablet by ity of mg tablet 00:00: mouth [place] 00 daily. Medical Branch ondansetron 0 Yes [id number] 4mg Take 1 Univers (ZOFRAN 4-29 tablet by ity of ODT) 4 mg 00:00: mouth [place] disintegrat 00 every 8 Medic al ing tablet (eight) Branch hours as needed for Nausea and Vomiting (N/V). famotidine 0 Yes [id number] 40mg Take 1 U nivers (PEPCID) 40 4-29 tablet by ity of mg tablet 00:00: mouth [place] 00 daily. Medical Branch ondansetron 0 Yes [id number] 4mg Take 1 Univers (ZOFRAN 4-29 tablet by ity of ODT) 4 mg 00:00: mouth [place] disintegrat 00 every 8 Medic al ing tablet (eight) Branch hours as needed for Nausea and Vomiting (N/V). sodium 2018-0 Yes by Methodi chloride 2-[address] 0.9% 12:18: l route Hospita parenteral 00 continuous l solution ly. sodium 2019-0 Yes by Methodi chloride 2-[address] 0.9% 12:18: l route Hospita parenteral 00 continuous l solution ly. HYDROcodone 2019-0 Yes 1{tbl} Q.5D Take 1 Me thodi -acetaminop 1-[address] hen (NORCO) 00:00: mouth 2 Hos elodia 7.5-325 mg 00 (two) l per tablet times a day. HYDROcodone 2019-0 Yes 1{tbl} Q.5D Take 1 Me thodi -acetaminop 1-[address] hen (NORCO) 00:00: mouth 2 Hos elodia 7.5-325 mg 00 (two) l per tablet times a day. carvedilol 2019-0 Yes 25mg Q.5D Take 25 mg M ethodi (COREG) 25 1-[address] MG tablet 00:00: (two) Hospita 00 times a l day. carvedilol 2019-0 Yes 25mg Q.5D Take 25 mg M ethodi (COREG) 25 1-[address] MG tablet 00:00: (two) Hospita 00 times a l day. tiZANidine 2019-0 Yes 4mg Q.5D Take 4 mg Me thodi (ZANAFLEX) 1-[address] 4 MG tablet 00:00: (two) Hospi ta 00 times a l day. tiZANidine 2019-0 Yes 4mg Q.5D Take 4 mg Me thodi (ZANAFLEX) 1-[address] 4 MG tablet 00:00: (two) Hospi ta 00 times a l day. Vital Signs Vital Name Observation Time Observation Value Comments Source Body temperature 2021-04-04 22:39:00 36.61 Deb [facility] Respiratory rate 2021-04-04 22:39:00 16 /min [facility] Oxygen saturation in 2021-04-04 22:39:00 98 /min [facility] Arterial blood by [facility] Pulse oximetry Branch Systolic blood 2021-04-04 22:39:00 128 mm[Hg] Mahesh sity of pressure [facility] Diastolic blood 2021-04-04 22:39:00 87 mm[Hg] Unive [facility] Heart rate 2021-04-04 22:39:00 79 /min Universi [facility] Body height 2021-04-04 20:31:00 [facility] Body weight 2021-04-04 20:31:00 52.164 kg [facility] BMI 2021-04-04 20:31:00 21.03 kg/m2 [facility] Systolic blood 2020-12-14 03:14:21 112 mm[Hg] Univer [facility] Diastolic blood 2020-12-14 03:14:21 76 mm[Hg] [facility] Heart rate 2020-12-14 03:14:21 98 /min [facility] Respiratory rate 2020-12-14 03:14:21 18 /min [facility] Oxygen saturation in 2020-12-14 03:14:21 98 /min [facility] Arterial blood by [facility] Pulse oximetry [place] Body temperature 2020-12-14 00:25:00 38.22 Deb [facility] Body height 2020-12-14 00:25:00 157.5 cm [facility] Body weight 2020-12-14 00:25:00 56.7 kg [facility] BMI 2020-12-14 00:25:00 22.86 kg/m2 [facility] Procedures Procedure Date / Time Performed Performing Clinician Sourgeraldine e US GALL BLADDER 2020-12-14 02:27:01 Lavonne Steven [facility] o f [facility] LIPASE 2020-12-14 00:43:00 Tena Arrieta [facility] COMP. METABOLIC PANEL 2020-12-14 00:43:00 Tena Arrieta [facility] ([id number]) [facility] CBC WITH DIFF 2020-12-14 00:43:00 Tena Arrieta [facility] URINALYSIS 2020-12-14 00:43:00 Tena Arrieta [facility] POCT TEST 2020-12-14 00:38:00 Tena Arrieta [facility] NOTICE OF PRIVACY 2020-12-14 00:14:56 Doctor Unassigned, No [facility] Name [facility] CONSENT/REFUSAL FOR 2020-12-14 00:14:44 Doctor Unassigned, No [facility] Medical [place] TREATMENT ASSIGNMENT OF BENEFITS 2020-11-14 21:08:49 Doctor Unassigned, No General acute hospital Plan of Care Planned Activity Planned Date Details Comments Source Future Scheduled 2022-04-18 HE[facility]IS B [facility] Test 04:10:50 VACCINES (1 of 3 - 3-dose series) [code = HEPATITIS B VACCINES (1 of 3 - 3-dose series)] Future Scheduled 2022-04-18 COVID-[address] [facility] Test 04:10:50 (#1) [code = COVID-19 VACCINE (#1)] Future Scheduled 2022-04-18 Screening for [facility] Test 04:10:50 malignant neoplasm of cervix (procedure) [code = 545788160] Future Scheduled 2022-04-18 INFLUENZA VACCINE [facility] Test 04:10:50 [code = INFLUENZA VACCINE] Future Scheduled 2021-06-20 COVID-[address] [facility] Test 01:33:53 (1) [code = COVID-19 VACCINE (1)] Future Scheduled 2021-06-20 Hepatitis C [facility] Test 01:33:53 screening (procedure) [code = 247185038] Future Scheduled 2021-06-20 [facility] Test 01:33:53 malignant neoplasm of cervix (procedure) [code = 823999213] Future Scheduled 2021-06-20 INFLUENZA VACCINE [facility] Test 01:33:53 [code = INFLUENZA VACCINE] Encounters Start End Encounter Admission Attending Care Care Encounter Source Date/Time Date/Time Type Type Clinicians Facility Department ID 2021-06-16 Emergency [facility] [id number] Univers 16:14:52 [facility] 2021-04-04 2021-04-04 Outpatient R [facility] [id number] Univers 15:00:00 15:00:00 [id number] [facility] 2021-04-04 2021-04-04 Outpatient R JUDE [facility] [id number] Univers 15:00:00 15:00:00 BENNETT melendrez [facility] 2021-04-04 2021-04-04 Nurse Therapy, Adc Covid Infusion [facility] [id number] Univers 13:03:02 14:03:02 Visit Jude Bennettjonathan Juarez [id number] it[place] [id number] [facility] 053 Branch 2020-12-13 2020-12-13 Emergency Maurizio, K [facility] [id number] Univers 19:29:00 22:48:00 Aliyah Juarez 350.1.13.10 i [place].2.686 [place] [phone] [facility] 084 Branch 2020-11-21 2020-11-21 [facility] ANDREW Velasquez [id number] Univers 13:31:00 23:59:00 Encounter Padmini STEIN [id number] [place] [id number] 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 2020-11-14 2020-11-14 Outpatient Little TUBBS [facility] [id number] Univers 16:00:00 16:00:00 GONZALEZ melendrez [facility] 2020-11-14 2020-11-14 Orders Doctor BULL [id number] [id number] Univers 00:00:00 00:00:00 Only Unassigned, PIA 350.1.13.10 ity of [place] [facility] 4.2.7.2.686 [place] as [id number] [place] [address] Branch Results Test Description Test Time Test Comments Results Result Comments Source Complete Metabolic Panel 2020-12-14 01:12:34 Test Item Value Reference Range Interpretation Comme nts NA (test code = 6714588064) 137 mmol/L 135-145 K (test code = 5183865606) 4.0 mmol/L 3.5-5.0 CL (test code = 3135629588) 106 mmol/L 98-108 CO2 TOTAL (test code = 23 mmol/L 23-31 8302336623) AGAP (test code = 6893580422) 2-16 BUN (test code = 5422724695) 14 mg/dL 7-23 GLUCOSE (test code = 8633407173) 107 mg/dL 70-110 CREATININE (test code = 0.51 mg/dL 0.50-1.04 1110274161) TOTAL BILI (test code = 0.4 mg/dL 0.1-1.3 1552169371) CALCIUM (test code = 5255205455) 9.2 mg/dL 8.6-10.6 T PROTEIN (test code = 6.8 g/dL 6.3-8.2 5989877697) ALBUMIN (test code = 5452129093) 4.1 g/dL 3.5-5.0 ALK PHOS (test code = 7981308224) 51 U/L 34-122 ALTv (test code = 1742-6) 15 U/L 5-35 AST(SGOT) (test code = 23 U/L 13-40 1758424367) eGFR (test code = 0055272416) mL/min/1.73m2 MARY (test code = MARY) Association of Glomerular Filtration Rate (GFR) and Staging of Kidney Disease* + +--------- + ----+| GFR (mL/min/1.73 m2) ?| With Kidney Damage ?| ?Without Kidney Damage+ +--- + +| ?>90 ?| ?Stage one ?| ? Normal ?+ +-------- + -----+| ?60-89 ?| ?Stage two ?| ? Decreased GFR ? + +--------- + ----+| ?30-59 ?| ?Stage three ?| ? Stage three ? + +--------- + ----+| ?15-29 ?| ?Stage four ? | ? Stage four ?+ +-------- + -----+| ?<15 (or dialysis) ? ?| ?Stage five ? | ? Stage five ?+ +-------- + -----+ *Each stage assumes the associated GFR level has been in effect for at least three months. ?Stages 1 to 5, with or without kidney disease, indicate chronic kidney disease. Notes: Determination of stages one and two (with eGFR >59mL/min/1.73 m2) requires estimation of kidney damage for at least three months as defined by structural or functional abnormalities of the kidney, manifested by either:Pathological abnormalities or Markers of kidney damage (including abnormalities in the composition of the blood or urine or abnormalities in imaging tests). [facility] [id number] 01:12:19 Test Item Value Reference Range Interpretation Comments LIPASE (test code = 3089495699) 65 U/L 0-220 Lab Interpretation (test code = Normal 09420-5) [facility]2021-04-30 01:09:47 Test Item Value Reference Range Interpretation Comments APPEARANCE (test code = Clear Clear 9448294661) COLOR (test code = Yellow Yellow 4805367197) PH (test code = 4.8-8.0 3354485704) SP GRAVITY (test code = 1.003-1.030 5132181321) GLU U QUAL (test code = Normal Normal 9961358969) BLOOD (test code = Negative Negative 2980567032) KETONES (test code = Negative Negative 9201610851) PROTEIN (test code = Negative Negative 2887-8) UROBILIN (test code = Normal Normal 4783762317) BILIRUBIN (test code = Negative Negative 3963738233) NITRITE (test code = Negative Negative 8757810429) LEUK ZACK (test code = Negative Negative 2061548921) RBC/HPF (test code = See_Comment [Autom ated message] 4044953247) The system [employer] generated this result transmitted ref erence range: 0 - 3 HP F. The reference range was not used to int erpret this result as normal/abnormal . WBC/HPF (test code = See_Comment [Autom ated message] 9758809958) The system [employer] h generated this result transmitted ref erence range: 0 - 5 HP F. The reference range was not used to int erpret this result as normal/abnormal . BACTERIA (test code = Negative Negative 6404340947) MUCOUS (test code = Slight Negative LPF A 0215497050) SQ EPITH (test code = HPF 0287571618) Lab Interpretation (test Abnormal code = 92505-5) [facility] with [id number] 00:59:14 Test Item Value Reference Range Interpretation Comments WBC (test code = See_Comment H [Automated 6690-2) message] The sy stem which generated this result transmitted reference range : 4.30 - 11.10 10*3/?L. The reference range was not used to interpret this result as normal/abnormal . RBC (test code = See_Comment [Automated 789-8) message] The sy stem which generated this result transmitted reference range : 3.93 - 5.25 10*6/?L. The reference range was not used to interpret this result as normal/abnormal . HGB (test code = 12.8 g/dL 11.6-15.0 718-7) HCT (test code = 38.3 % 35.7-45.2 4544-3) MCV (test code = 96.0 fL 80.6-95.5 H 787-2) MCH (test code = 32.1 pg 25.9-32.8 785-6) MCHC (test code = 33.4 g/dL 31.6-35.1 786-4) RDW-SD (test code = 48.4 fL 39.0-49.9 97652-1) RDW-CV (test code = 13.4 % 12.0-15.5 788-0) PLT (test code = See_Comment [Automated 777-3) message] The sy stem which generated this result transmitted reference range : 166 - 358 10*3/ ?L. The reference r jayjay was not used to interpret this result as normal/abnormal . MPV (test code = 9.5 fL 9.5-12.9 84593-7) NRBC/100 WBC (test See_Comment [Automat ed code = 4231120763) message] The system which generated this result transmitted reference range : 0.0 - 10.0 /100 WBCs. The refer ence range was not u sed to interpret th is result as normal/abnormal . NRBC x10^3 (test code <0.01 See_Comment [Auto mated = 7266012901) message] The s ystem which generated this result transmitted reference range : 10*3/?L. The reference range was not used to interpret this result as normal/abnormal . GRAN MAT (NEUT) % 77.0 % (test code = 770-8) IMM GRAN % (test code 0.40 % = 2059715208) LYMPH % (test code = 9.1 % 736-9) MONO % (test code = 12.8 % 5905-5) EOS % (test code = 0.5 % 713-8) BASO % (test code = 0.2 % 706-2) GRAN MAT x10^3(ANC) 8.83 10*3/uL 1.88-7.09 H (test code = 5620464085) IMM GRAN x10^3 (test 0.05 10*3/uL 0.00-0.06 code = 8884267972) LYMPH x10^3 (test code 1.05 10*3/uL 1.32-3.29 L = 731-0) MONO x10^3 (test code 1.47 10*3/uL 0.33-0.92 H = 742-7) EOS x10^3 (test code = 0.06 10*3/uL 0.03-0.39 711-2) BASO x10^3 (test code <0.03 0.01-0.07 = 704-7) Lab Interpretation Abnormal (test code = 76609-3) [facility] [id number] 00:38:00 Test Item Value Reference Range Interpretation Comments POCT PREG (test code = 1605) negative On board controls acceptable with present C Line (test code = 3574) POCT PREG LOT # (test code = 3575) [id number] POCT PREG TEST DATE (test 2022-07-16 code = 3576) Lab Interpretation (test code = Normal 65066-4) [facility]"
--- NOTE | 2022-05-03 04:10 | ER ---
Nurse's Notes [facility] Name: Carli Hadley Age: 41 yrs Sex: Female : 1980 Arrival Date: 05/03/2022 Time: 03:57 Bed Waiting Private MD: Diagnosis: ED Course: 05/03 03:57 Patient arrived in ED. bp1 Administered Medications: No medications were administered Outcome: 04:09 Patient left the ED. vc1 Signatures: Ana Torres bp1 Ana Gonzalez, RN RN vc1
== END 2022-05-03 04:09 | disposition left against medical advice (07) ==
LOC: ER 03:54
DX: Z02.9 Encounter for administrative examinations, unspecified (principal)